=== PATIENT | male | born 1955 | race Caucasian/White ===

== ENCOUNTER 2021-07-07 13:47 | Inpatient (IN) ==
[2021-07-07] MEDS ORDERED: PIPERACILL/TAZOBAC CONSULT ACTIVE PRN (14:06)
[2021-07-07] MEDS ORDERED: PIPERACILLIN/TAZOBACTAM 4.5 GM/120 ML BAG IV ONE (14:06)
[2021-07-07] MEDS ORDERED: SODIUM CHLORIDE 0.9% 500 ML IV ONE (14:09)
[2021-07-07] MEDS ORDERED: SODIUM CHLORIDE 0.9% 1000ML 1,000 ML IV SCH ×2 (14:15→19:25)
--- NOTE | 2021-07-07 14:30 | XRay Report ---
XR chest 1V portable CLINICAL HISTORY: weakness COMPARISON STUDY: No previous studies for comparison. FINDINGS: There is no pneumothorax. Bilateral pleural effusions are noted. Right pleural effusion is moderate to large and the left pleural effusion is likely moderate in size. There are associated biba silar opacities. There is pulmonary vascular congestion with suspected mild pulmonary edema. IMPRESSION: 1. Moderate to large right pleural effusion. Moderate left pleural effusion. Associated bibasilar opa cities which could reflect atelectasis or consolidation. Radiographic follow-up is recommended. 2. Pulmonary vascular congestion with suspected mild pulmonary edema. ACT 112: Negative or not required by law. Electronically signed by: Tye Olivia M.D. 07/07/2021 2:28 PM
[2021-07-07 14:37] LABS: INR 1.9 (0.9-1.1); Prothrombin Time 18.7 Seconds (9.0-12.0)
[2021-07-07 14:44] LABS: Hematocrit (blood only) 37.3 % (42-52); Hemoglobin 12.5 g/dL (14.0-18.0); Mean Corpuscular Hemoglobin 36.5 pg (25-34); Mean Corpuscular Hgb Conc 33.5 g/dL (32-36); Mean Corpuscular Volume 109.1 fL (80-100); Mean Platelet Volume 11.5 fL (7.4-10.4); Platelet Count 84 K/uL (130-400); RDW Coefficient of Variation 18.3 % (11.5-14.5); RDW Standard Deviation 72.4 fL (36.4-46.3); Red Blood Count 3.42 M/uL (4.7-6.1)
[2021-07-07 14:45] LABS: Basophils # (auto) 0.01 K/uL (0-0.2); Basophils % (auto) 0.2 %; Eosinophils # (auto) 0.07 K/uL (0-0.5); Eosinophils % (auto) 1.1 %; Immature Granulocytes # (auto) 0.01 K/uL (0.00-0.02); Immature Granulocytes % (auto) 0.2 %; Lymphocytes % (auto) 14.5 %; Monocytes % (auto) 4.8 %; Neutrophils # (auto) 4.91 K/uL (1.4-6.5); Neutrophils % (auto) 79.2 %; Platelet Estimate Decreased (Normal); Rouleaux 1+; Target Cells 1+
--- NOTE | 2021-07-07 15:37 | CT Scan Report ---
CT OF THE CERVICAL SPINE WITHOUT CONTRAST CLINICAL HISTORY: Trauma COMPARISON STUDY: No previous studies for comparison. TECHNIQUE: Helical axial images of the cervical spine were obtained without IV contrast. Sagittal a nd coronal reconstructions were viewed. Automated exposure control was utilized for the study. A do se lowering technique was utilized adhering to the principles of ALARA. FINDINGS: There is reversal of the normal cervical lordosis. Vertebral body heights are maintained. T here is no acute fracture within the cervical spine. No suspicious osseous lesion is noted. Moderate to severe multilevel disc space narrowing is noted. There is mild multilevel facet arthrosis. There i s no prevertebral edema. Craniocervical junction is intact. Bilateral pleural effusions, right larger than left, are partially imaged on this exam. This study is mildly compromised by motion artifact. IMPRESSION: 1. No acute cervical spine fracture or subluxation. 2. Partially visualized bilateral pleural effusions, right larger than left. ACT 112: Negative or not required by law. Electronically signed by: Tye Olivia M.D. 07/07/2021 3:36 PM
--- NOTE | 2021-07-07 15:37 | CT Scan Report ---
CT SCAN OF THE BRAIN WITHOUT IV CONTRAST CLINICAL HISTORY: Trauma. Headache. COMPARISON STUDY: No priors. TECHNIQUE: Unenhanced axial CT scan of the brain is performed from the vertex to the skull base. A do se lowering technique was utilized adhering to the principles of ALARA. FINDINGS: Brain parenchyma: There are age-related involutional changes noting mild subcortical and periventric ular microangiopathic change. There is no hemorrhage, mass effect, or evidence of acute territorial i schemia by CT criteria. Nelson-white matter differentiation is preserved. No extra-axial fluid collecti on is seen. Ventricles, sulci, cisterns: Prominent secondary to involutional change. Intracranial vasculature: There is atherosclerotic calcification of the cavernous carotid arteries. Calvarium: The skeletal structures are osteopenic. There is no depressed calvarial fracture. Sinuses and mastoids: There is trace mucosal thickening within the left maxillary antrum and the righ t ethmoid sinuses. The remaining visualized paranasal sinuses are clear. The mastoid air cells are we ll pneumatized. Orbits: The bony orbits are grossly intact. There are bilateral ocular lens implants. IMPRESSION: There is no hemorrhage, mass effect, or evidence of acute territorial ischemia by CT melyssa gamino. ACT 112: Negative or not required by law. Electronically signed by: Leonardo Kirkland M.D. 07/07/2021 3:36 PM
--- NOTE | 2021-07-07 16:06 | Ultrasound Report ---
PARACENTESIS UNDER ULTRASOUND GUIDANCE CLINICAL HISTORY: Abdominal ascites. Clinical concern for spontaneous bacterial peritonitis COMPARISON STUDY: No priors. PROCEDURE: The risks, benefits, and alternatives to the procedure were discussed with the patient who voiced understanding. Written informed consent was obtained. Following real-time ultrasound localiza tion of a suitable pocket of fluid in the left lower quadrant, the abdomen was prepped and draped in the usual sterile fashion. The skin and soft tissues were anesthetized with 1% lidocaine. The sheathe d paracentesis needle was inserted and approximately 4 liters of straw-colored ascitic fluid was hitesh curtis by vacuum suction. A sample was sent for laboratory assessment. The procedure was well tolerated and without immediate complication. The patient returned to the emergency department in satisfactory condition. IMPRESSION: Successful ultrasound-guided paracentesis with removal of approximately 4 liters of ascit ic fluid. ACT 112: Negative or not required by law. Electronically signed by: Leonardo Kirkland M.D. 07/07/2021 4:05 PM
[2021-07-07] MEDS ORDERED: SODIUM CHLORIDE 0.9% 1000ML 500 ML IV ONE (16:11)
[2021-07-07] MEDS: ALBUMIN 25% 12.5 GM/50 ML VIAL IV SCH ×8 (16:32→22:53)
[2021-07-07 17:01] LABS: Glucose Peritoneal Fluid 104 mg/dl
[2021-07-07 17:06] LABS: LDH Peritoneal Fluid 34 U/L; Lipase Peritoneal Fluid 19 U/L; Total Protein Peritoneal Fluid 1.5 g/dl
[2021-07-07 17:14] LABS: Appearance Peritoneal Fluid CLEAR; Color Peritoneal Fluid YELLOW; RBC Peritoneal Fluid (A) < 3000 /uL; WBC Peritoneal Fluid (A) 89 /ul (0-300)
[2021-07-07 17:15] LABS: Basophils, Fluid 0 %; Eosinophils, Fluid 0 %; Lymphocytes, Fluid 25 %; Mono,Macrophage,Mesothelial 65 %; Neutrophils, Fluid 10 %
[2021-07-07 17:23] LABS: Alanine Aminotransferase 25 U/L (12-78); Albumin Level 1.8 gm/dl (3.4-5.0); Aspartate Aminotransferase 76 U/L (15-37); BUN Creatinine Ratio 22.6 (10-20); Blood Urea Nitrogen 25 mg/dl (7-18); Calcium 8.6 mg/dl (8.5-10.1); Carbon Dioxide 37 mmol/L (21-32); Chloride 94 mmol/L (98-107); Creatinine Clr Calc Pharmacy 74.8 ml/min; Est GFR (African American) 78.4 ml/min; Est GFR (Non-African American) 67.6 ml/min; Glucose 104 mg/dl (70-99); Magnesium 2.2 mg/dl (1.8-2.4); Potassium 3.2 mmol/L (3.5-5.1); Sodium 136 mmol/L (136-145)
[2021-07-07 17:29] LABS: Albumin Globulin Ratio 0.3 (0.9-2); Alkaline Phosphatase 60 U/L (45-117); Bilirubin,Total 6.3 mg/dl (0.2-1); Globulin 5.3 gm/dl (2.5-4.0); Total Protein 7.1 gm/dl (6.4-8.2); Troponin I < 0.015 ng/ml (0-0.045)
[2021-07-07] MEDS ORDERED: GABAPENTIN 800MG ALCOHOL WITHDRAWAL LOAD PO STA (17:43)
--- NOTE | 2021-07-07 17:51 | History & Physical Report ---
Date of Service July 07, 2021 Assessment & Plan (1) Decompensated liver disease: (2) Abdominal ascites: (3) Hyperbilirubinemia: Plan: This is a 65-year-old male with CHF, hypertension and alcohol abuse who presents with worsening dyspnea over the past week. Denies formal diagnosis of cirrhosis in the past. Noncompliant with medical care, ongoing etoh use Underwent ultrasound-guided paracentesis with removal of approximately 4 liters of ascitic fluid Bilirubin 6, INR 1.9, AST 76, albumin 1.8, ammonia wnl MELD score of 23 Concern for SBP so given empiric Zosyn Peritoneal fluid wbc, protein and LDH all wnl GI consulted, attempted to obtain liver us but patient unable to lay on left side - will attempt again tomorrow Hypotensive in ED 80/40 following paracentesis. 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 Moderate left pleural effusion. Pulmonary vascular congestion with suspected mild pulmonary edema Hold home lasix in setting of hypotension Continue supplemental O2 (6) Bilateral pleural effusion: Plan: CXR with moderate to large right pleural effusion. Moderate left pleural effusion. Pulmonary vascular congestion with suspected mild pulmonary edema Routine pulm consult Continue supplemental O2 (7) Hypertension: Plan: Holding atenolol and carvedilol in setting of hypotension DVT Ppx: SCDs in setting of thrombocytopenia Code status: FULL PCP: Jacquelyn ([place]) Dispo: Admitted to PCU Patient seen in collaboration with Dr. Jaquez. Please see addendum. History of Present Illness Chief Complaint: Dyspnea, generalized weakness Primary Care Provider: Davidson Valladares MD This is a 65-year-old male with CHF, hypertension, and alcohol abuse who presents with worsening dyspnea over the past week. Patient admits that he rarely seeks medical care. Follows infrequently with Dr. Valladares in [place]. Has been feeling generally weak and short of breath over the past week and had a friend checking in on him since he lives alone. Today, patient was too weak to answer the door for his friend who then called EMS to take patient to ER for further evaluation. States he has had distended abdomen for the past 2 weeks. Tried to eat less and reduce alcohol consumption but belly remained distended. Patient with long-term alcohol abuse. Used to drink 10-11 light beers daily but reduced to 8 daily over the past 10 days. Unable to determine time of last drink. Does feel like he is going into withdrawal as he is more agitated and shaky. Known seizures in setting of alcohol withdrawal in the past. Remote tobacco use but quit 20 years ago. No formal cirrhosis diagnosis but states he notes his skin is yellow from time to time. Somewhat compliant taking atenolol, carvedilol and Lasix at home. Has not in the past few days due to feeling more weak. Denies any fever, chills or known sick contacts. No congestion or wheezing. No chest pain or palpitations. No nausea, vomiting or abdominal pain. Urinating without issue. No diarrhea or constipation. Allergies Allergy/AdvReac Type Severity Reaction Status Date / Time No Known Allergies Allergy Verified 07/07/21 14:59 Home Medications Medication Instructions Recorded Confirmed Type atenolol 50 mg tablet 50 mg PO DAILY 07/07/21 07/07/21 History carvedilol 3.125 mg tablet 3.125 mg PO BID 07/07/21 07/07/21 History epinephrine 0.125 mg/actuation 1 puff INHALATION Q4H PRN 07/07/21 07/07/21 History aerosol inhaler (Primatene Mist) furosemide 40 mg tablet (Lasix) 40 mg PO DAILY 07/07/21 07/07/21 History Past Med/Surg History Medical History (Updated 07/07/21 @ 18:02 by Sherice Suárez PA-C) Alcohol abuse CHF (congestive heart failure) Hypertension Surgical History (Updated 07/07/21 @ 17:52 by Sherice Suárez PA-C) No pertinent past surgical history Family History (Updated 07/07/21 @ 17:53 by Sherice Suárez PA-C) Other Heart disease Kidney disease Social History (Updated 07/07/21 @ 17:53 by Sherice Suárez PA-C) Smoking Status: Never smoker Hx Alcohol Use: Yes (states he quit "a week ago" last drink was "last saturday") Alcohol type: beer Hx Substance Use: No Preferred Language: Vietnamese Communication Ability Comment: pt seems confused at times Beliefs That Will Affect Care: None Current Living Situation: Alone Feels Safe at Home: Yes Safety Concerns: Feels Safe At This Time Assistive Devices: Cane and Glasses Review of Systems Review of Systems: At least ten systems reviewed and negative except as noted in the HPI. Physical Exam Physical Exam: General Appearance: vitals as above, appears chronically ill, jaundice, conversational dyspnea Head: normocephalic, atraumatic Eyes: normal inspection, PERRL, conjunctivae normal, anicteric sclerae ENT: external ear and nose normal, oropharynx normal Neck: normal visual inspection, trachea midline, no thyromegaly Respiratory: increased respiratory effort, diminished breath sounds at bases, no wheeze, rales or rhonchi. No accessory muscle use Cardiovascular: regular rate, rhythm, normal peripheral pulses, 1+ BLE edema. Vessels: + JVD Chest: normal inspection of chest Abdomen/GI: normal bowel sounds, distended but soft, nontender, no h epatosplenomegaly Extremities/Musculoskeletal: no cyanosis or clubbing, extremities motor strength 5/5 Neurologic: PERRL, EOMI, accommodation nl, no face palsy, no dysarthria, CN's II-XI intact bilaterally and moves all extremities Psychiatric: A+Ox3, poor insight Skin: no rashes, +jaundice, warm/dry Results & Data Results & Data ([facility]) Vital Signs (Past 12 Hours) Vital Signs Temp Pulse Resp BP Pulse Ox 07/07/21 16:30 67 20 82/43 L 95 07/07/21 16:18 83/54 L 07/07/21 15:11 35.1 C L 07/07/21 15:00 65 20 89/58 L 98 07/07/21 14:33 65 19 94 07/07/21 14:00 69 19 92/70 L 97 07/07/21 13:58 69 20 92/70 L 97 Laboratory Results Short CBC 07/07/21 07/07/21 Range/Units 14:14 16:53 WBC 6.20 (4.8-10.8) K/uL Hgb 12.5 L (14.0-18.0) g/dL Hct 37.3 L (42-52) % Plt Count 84 L (130-400) K/uL Total Bilirubin 6.3 H (0.2-1) mg/dl BMP 07/07/21 16:53 Sodium 136 Potassium 3.2 L Chloride 94 L Carbon Dioxide 37 H BUN 25 H Creatinine 1.12 Glucose 104 H Calcium 8.6 Cardiac Enzymes 07/07/21 Range/Units 16:53 Troponin I < 0.015 (0-0.045) ng/ml Liver Function 07/07/21 Range/Units 16:53 Total Bilirubin 6.3 H (0.2-1) mg/dl AST 76 H (15-37) U/L ALT 25 (12-78) U/L Alkaline Phosphatase 60 (45-117) U/L Albumin 1.8 L (3.4-5.0) gm/dl Diagnostic Findings Cervical Spine CT 07/07/21 14:00 CT OF THE CERVICAL SPINE WITHOUT CONTRAST CLINICAL HISTORY: Trauma COMPARISON STUDY: No previous studies for comparison. TECHNIQUE: Helical axial images of the cervical spine were obtained without IV contrast. Sagittal and coronal reconstructions were viewed. Automated exposure control was utilized for the study. A dose lowering technique was utilized adhering to the principles of ALARA. FINDINGS: There is reversal of the normal cervical lordosis. Vertebral body heights are maintained. There is no acute fracture within the cervical spine. No suspicious osseous lesion is noted. Moderate to severe multilevel disc space narrowing is noted. There is mild multilevel facet arthrosis. There is no prevertebral edema. Craniocervical junction is intact. Bilateral pleural effusions, right larger than left, are partially imaged on this exam. This study is mildly compromised by motion artifact. IMPRESSION: 1. No acute cervical spine fracture or subluxation. 2. Partially visualized bilateral pleural effusions, right larger than left. ACT 112: Negative or not required by law. Electronically signed by: Tye Olivia M.D. 07/07/2021 3:[address] 07/07/21 14:00 CT SCAN OF THE BRAIN WITHOUT IV CONTRAST CLINICAL HISTORY: Trauma. Headache. COMPARISON STUDY: No priors. TECHNIQUE: Unenhanced axial CT scan of the brain is performed from the vertex to the skull base. A dose lowering technique was utilized adhering to the principles of ALARA. FINDINGS: Brain parenchyma: There are age-related involutional changes noting mild subcortical and periventricular microangiopathic change. There is no hemorrhage, mass effect, or evidence of acute territorial ischemia by CT criteria. Nelson- white matter differentiation is preserved. No extra-axial fluid collection is seen. Ventricles, sulci, cisterns: Prominent secondary to involutional change. Intracranial vasculature: There is atherosclerotic calcification of the cavernous carotid arteries. Calvarium: The skeletal structures are osteopenic. There is no depressed calvarial fracture. Sinuses and mastoids: There is trace mucosal thickening within the left maxillary antrum and the right ethmoid sinuses. The remaining visualized paranasal sinuses are clear. The mastoid air cells are well pneumatized. Orbits: The bony orbits are grossly intact. There are bilateral ocular lens implants. IMPRESSION: There is no hemorrhage, mass effect, or evidence of acute territorial ischemia by CT criteria. ACT 112: Negative or not required by law. Electronically signed by: Leonardo Kirkland M.D. 07/07/2021 3:36 PM Paracentesis Ultrasound 07/07/21 14:00 PARACENTESIS UNDER ULTRASOUND GUIDANCE CLINICAL HISTORY: Abdominal ascites. Clinical concern for spontaneous bacterial peritonitis COMPARISON STUDY: No priors. PROCEDURE: The risks, benefits, and alternatives to the procedure were discussed with the patient who voiced understanding. Written informed consent was obtained. Following real-time ultrasound localization of a suitable pocket of fluid in the left lower quadrant, the abdomen was prepped and draped in the usual sterile fashion. The skin and soft tissues were anesthetized with 1% lidocaine. The sheathed paracentesis needle was inserted and approximately 4 liters of straw-colored ascitic fluid was removed by vacuum suction. A sample was sent for laboratory assessment. The procedure was well tolerated and without immediate complication. The patient returned to the emergency department in satisfactory condition. IMPRESSION: Successful ultrasound-guided paracentesis with removal of approximat monae 4 liters of ascitic fluid. ACT 112: Negative or not required by law. Electronically signed by: Leonardo Kirkland M.D. 07/07/2021 4:05 PM Chest X-Ray 07/07/21 14:03 XR chest 1V portable CLINICAL HISTORY: weakness COMPARISON STUDY: No previous studies for comparison. FINDINGS: There is no pneumothorax. Bilateral pleural effusions are noted. Right pleural effusion is moderate to large and the left pleural effusion is likely moderate in size. There are associated bibasilar opacities. There is pulmonary vascular congestion with suspected mild pulmonary edema. IMPRESSION: 1. Moderate to large right pleural effusion. Moderate left pleural effusion. Associated bibasilar opacities which could reflect atelectasis or consolidation. Radiographic follow-up is recommended. 2. Pulmonary vascular congestion with suspected mild pulmonary edema. ACT 112: Negative or not required by law. Electronically signed by: Tye Olivia M.D. 07/07/2021 2:28 PM Code Status & VTE Plan VTE Prophylaxis Plan VTE Prophylaxis will be ordered: Yes Supervising Physician Co-Signing Physician Notes Attending addendum: The patient was seen and examined in emergency room 65-year-old with alcoholism came in with increasing weakness and shortness of breath for the last few days Denies any fever and chills, no chest pain or palpitation, has abdominal pain with distention Has had paracentesis of 4 L of fluid and has been feeling a little bit better in the emergency room On examination Moderate distress at rest with shortness of breath Blood pressure remains low at systolic 80s Chest decreased breath sounds both sides Heart S1-S2 regular Abdomendistended, soft, tender to palpation and moderate amount of ascites fluid Extremities 2+ edema bilaterally and chronic in nature CNSalert, oriented. General very weak lethargy His admission labs, imaging studies and EKG reviewed Has low platelet with high anti-INR and electrode imbalance with bilateral pleural effusion and ascites Noted to have low blood pressure Has decompensated cirrhosis with ascites, pleural effusion: And low blood pressure May need pressor support down the line Reviewed assessment and plan as outlined above by OLMAN Henry Dr
[2021-07-07] MEDS ORDERED: GABAPENTIN 800 MG TAB PO ONE (18:00)
--- NOTE | 2021-07-07 18:00 | Emergency Department Note ---
History of Present Illness General Chief complaint: GI Assessment Stated complaint: Hypoxia Weakness Time Seen by Provider: 07/07/21 13:58 Source: patient and RN notes reviewed Mode of arrival: ambulatory Limitations: no limitations History of Present Illness Provider complaint: Hypoxia, weakness, fall This patient is a 65-year-old male who presents to the emergency department with complaints of weakness and recent fall. Patient states he drinks alcohol regularly Home Medications Medication Instructions Recorded Confirmed Type atenolol 50 mg tablet 50 mg PO DAILY 07/07/21 07/07/21 History carvedilol 3.125 mg tablet 3.125 mg PO BID 07/07/21 07/07/21 History epinephrine 0.125 mg/actuation 1 puff INHALATION Q4H PRN 07/07/21 07/07/21 History aerosol inhaler (Primatene Mist) furosemide 40 mg tablet (Lasix) 40 mg PO DAILY 07/07/21 07/07/21 History Allergies Allergy/AdvReac Type Severity Reaction Status Date / Time No Known Allergies Allergy Verified 07/07/21 14:59 Past Med/Surg History Medical History (Updated 07/07/21 @ 18:00 by Paris Gutierrez MD) Alcohol abuse CHF (congestive heart failure) Hypertension Surgical History (Updated 07/07/21 @ 17:52 by Sherice Suárez PA-C) No pertinent past surgical history Family History (Updated 07/07/21 @ 17:53 by Sherice Suárez PA-C) Other Heart disease Kidney disease Social History (Updated 07/07/21 @ 17:45 by Paris Gutierrez MD) Smoking Status: Former smoker Hx Alcohol Use: Yes ([employer] 8-10 cans/day x 6-7 years (he says "maybe")) Alcohol type: beer Hx Substance Use: No Current Living Situation: Alone Feels Safe at Home: Yes Physical Exam Vital Signs Vital Signs - 24 hr 07/07/21 13:58 07/07/21 14:00 07/07/21 14:03 Temperature Temperature Source Pulse Rate 69 69 Pulse Rate from SpO2 Sensor 66 Respiratory Rate 20 19 Respiratory Effort / Characteristics Non-Labored Respiratory Depth Normal Respiratory Pattern Regular Blood Pressure 92/70 L 92/70 L Blood Pressure Mean 77 77 Pulse Oximetry 97 97 Oxygen Delivery Method Non-rebreather Nasal Cannula Oxygen Flow Rate 15 3 Sepsis Recent Fever Within 48 Hours Yes Sepsis New/Unexplained Change in Mental Status No Sepsis Action Taken by Nursing No Action Required 07/07/21 14:33 07/07/21 15:00 07/07/21 15:11 Temperature 35.1 C L Temperature Source Rectal Pulse Rate 65 65 Pulse Rate from SpO2 Sensor 66 64 Respiratory Rate 19 20 Respiratory Effort / Characteristics Respiratory Depth Respiratory Pattern Blood Pressure 89/58 L Blood Pressure Mean 68 Pulse Oximetry 94 98 Oxygen Delivery Method Oxygen Flow Rate Sepsis Recent Fever Within 48 Hours Sepsis New/Unexplained Change in Mental Status Sepsis Action Taken by Nursing 07/07/21 16:18 07/07/21 16:30 Temperature Temperature Source Pulse Rate 67 Pulse Rate from SpO2 Sensor 67 Respiratory Rate 20 Respiratory Effort / Characteristics Respiratory Depth Respiratory Pattern Blood Pressure 83/54 L 82/43 L Blood Pressure Mean 63 56 Pulse Oximetry 95 Oxygen Delivery Method Oxygen Flow Rate Sepsis Recent Fever Within 48 Hours Sepsis New/Unexplained Change in Mental Status Sepsis Action Taken by Nursing Vital signs reviewed. Noted to be hypotensive, hypothermic General: Chronically ill-appearing 65-year-old male, in no significant distress HEENT: Positive scleral icterus, PERRLA, neck supple. Ecchymosis noted to the anterior neck that appears to be healing. Cardiovascular: Regular rate and rhythm, no extra sounds. Pulmonary: Clear to auscultation bilaterally, normal work of breathing. Abdomen: Soft, distended with positive fluid wave. Warm to touch with erythema noted to the distal half of the abdominal wall. Mildly tender to palpation diffusely. Musculoskeletal: Atraumatic, no peripheral edema. Cachectic. Bilateral lower extremity edema 2+. Neurologic: Patient awake alert and oriented x 3. Skin: Warm, dry, no rash Course Administered Medications Sodium Chloride (Nss 1000ml) 1,000 mls @ 150 mls/hr IV .Q6H40M PENDING SALE TO [facility] Stop: 08/06/21 14:14 Last Admin: 07/07/21 15:10 Dose: 150 mls/hr Documented by: [id number] Albumin Human (Albumin 25%) 12.5 gm in 50 mls @ 50 mls/hr IV Q1H PENDING SALE TO [facility] Stop: 07/07/21 18:14 Last Admin: 07/07/21 16:42 Dose: 50 mls/hr Documented by: [id number] Infusion: 07/07/21 16:42 Dose: 50 mls/hr Documented by: [id number] Admin: 07/07/21 16:32 Dose: 50 mls/hr Documented by: [id number] Albumin Human (Albumin 25%) 12.5 gm in 50 mls @ 50 mls/hr IV Q1H [facility] Stop: 07/07/21 19:14 Last Admin: 07/07/21 17:23 Dose: 50 mls/hr Documented by: [id number] Infusion: 07/07/21 17:23 Dose: 50 mls/hr Documented by: [id number] Admin: 07/07/21 17:12 Dose: 50 mls/hr Documented by: [id number] Discontinued Medications Piperacillin Sod/Tazobactam Sod (Zosyn) 4.5 gm in 120 mls @ 240 mls/hr IV NOW ONE Stop: 07/07/21 14:35 Last Infusion: 07/07/21 16:40 Dose: 0 mls/hr Documented by: [id number] Admin: 07/07/21 14:57 Dose: 240 mls/hr Documented by: [id number] Sodium Chloride (Nss) 500 mls @ 999 mls/hr IV .Q31M ONE Stop: 07/07/21 14:39 Last Infusion: 07/07/21 16:44 Dose: 0 mls/hr Documented by: [id number] Admin: 07/07/21 14:46 Dose: 999 mls/hr Documented by: [id number] Sodium Chloride (Nss 1000ml) 500 mls @ 999 mls/hr IV .Q31M ONE Stop: 07/07/21 16:41 Last Admin: 07/07/21 16:40 Dose: 999 mls/hr Documented by: [id number] Critical Care Time Critical Care Time: Yes Total Critical Care Time: 50 I have personally spent greater than 50 minutes of critical care time in the direct management of this patient. This includes bedside care, interpretation of diagnostic studies, and testing, discussion with consultants, patient, and family members, and other required patient management activities. This 50 minutes is in excess of all separately billable procedures. Medical Decision Making Differential Diagnosis Sepsis, alcohol intoxication, liver failure, renal failure, malignancy, dehydration, metabolic abnormality, hypo/hyperglycemia, electrolyte disturbance, anemia, hypoxia, cardiac sources, intracerebral event, toxicologic, neurologic, as well as other pathologies. Medical Records Attestation: I reviewed the patient's medical records. Home Medications Current Medication List: was personally reviewed by me Laboratory Data Attestation: I reviewed the patient's lab results. Result diagrams: 07/07/21 14:14 07/07/21 16:53 Lab Results 07/07/21 07/07/21 07/07/21 Range/Units 14:10 14:10 14:14 WBC (4.8-10.8) K/uL RBC (4.7-6.1) M/uL Hgb (14.0-18.0) g/dL Hct (42-52) % MCV (80-100) fL MCH (25-34) pg MCHC (32-36) g/dL RDW Std Deviation (36.4-46.3) fL RDW Coeff of Anjana (11.5-14.5) % Plt Count (130-400) K/uL MPV (7.4-10.4) fL Immature Gran % (Auto) % Neut % (Auto) % Lymph % (Auto) % [place] % (Auto) % Eos % (Auto) % Baso % (Auto) % Neut # (Auto) (1.4-6.5) K/uL Lymph # (Auto) (1.2-3.4) K/uL [place] # (Auto) (0.11-0.59) K/uL Eos # (Auto) (0-0.5) K/uL Baso # (Auto) (0-0.2) K/uL Immature Gran # (Auto) (0.00-0.02) K/uL Platelet Estimate (Normal) Target Cells Rouleaux PT 18.7 H (9.0-12.0) Seconds INR 1.9 H (0.9-1.1) Sodium (136-145) mmol/L Potassium (3.5-5.1) mmol/L Chloride (98-107) mmol/L Carbon Dioxide (21-32) mmol/L Anion Gap (3-11) BUN (7-18) mg/dl Creatinine (0.6-1.4) mg/dl Est Cr Clr Drug Dosing ml/min Est GFR ( Amer) ml/min Est GFR (Non-Af Amer) ml/min BUN/Creatinine Ratio (10-20) Glucose (70-99) mg/dl Lactate (0.4-2.0) mmol/L Calcium (8.5-10.1) mg/dl Magnesium (1.8-2.4) mg/dl Total Bilirubin (0.2-1) mg/dl AST (15-37) U/L ALT (12-78) U/L Alkaline Phosphatase (45-117) U/L Ammonia (11-32) umol/L Troponin I (0-0.045) ng/ml Total Protein (6.4-8.2) gm/dl Albumin (3.4-5.0) gm/dl Globulin (2.5-4.0) gm/dl Albumin/Globulin Ratio (0.9-2) TSH (0.300-4.500) uIu/ml Fluid Neutrophils % % Fluid Lymphocytes % % Fluid Eosinophils % % Fluid Basophils % % Fluid Meso/Macro/[place] % % Fluid Comment Peritoneal Color Peritoneal Appearance Peritoneal WBC (0-300) /ul Peritoneal RBC /uL Peritoneal Tot Protein g/dl Peritoneal LDH U/L Peritoneal Glucose mg/dl Peritoneal Lipase U/L Ethyl Alcohol mg/dL COVID-19 Eval Order Covid19 at [facility] SARS-CoV-2 (PCR) NEGATIVE (Negative) Blood Type Antibody Screen 07/07/21 07/07/21 07/07/21 Range/Units 14:14 14:14 14:14 WBC 6.20 (4.8-10.8) K/uL RBC 3.42 L (4.7-6.1) M/uL Hgb 12.5 L (14.0-18.0) g/dL Hct 37.3 L (42-52) % MCV 109.1 H (80-100) fL MCH 36.5 H (25-34) pg MCHC 33.5 (32-36) g/dL RDW Std Deviation 72.4 H (36.4-46.3) fL RDW Coeff of Anjana 18.3 H (11.5-14.5) % Plt Count 84 L (130-400) K/uL MPV 11.5 H (7.4-10.4) fL Immature Gran % (Auto) 0.2 % Neut % (Auto) 79.2 % Lymph % (Auto) 14.5 % [place] % (Auto) 4.8 % Eos % (Auto) 1.1 % Baso % (Auto) 0.2 % Neut # (Auto) 4.91 (1.4-6.5) K/uL Lymph # (Auto) 0.90 L (1.2-3.4) K/uL [place] # (Auto) 0.30 (0.11-0.59) K/uL Eos # (Auto) 0.07 (0-0.5) K/uL Baso # (Auto) 0.01 (0-0.2) K/uL Immature Gran # (Auto) 0.01 (0.00-0.02) K/uL Platelet Estimate Decreased L (Normal) Target Cells 1+ Rouleaux 1+ PT (9.0-12.0) Seconds INR (0.9-1.1) Sodium (136-145) mmol/L Potassium (3.5-5.1) mmol/L Chloride (98-107) mmol/L Carbon Dioxide (21-32) mmol/L Anion Gap (3-11) BUN (7-18) mg/dl Creatinine (0.6-1.4) mg/dl Est Cr Clr Drug Dosing ml/min Est GFR ( Amer) ml/min Est GFR (Non-Af Amer) ml/min BUN/Creatinine Ratio (10-20) Glucose (70-99) mg/dl Lactate 2.1 H* (0.4-2.0) mmol/L Calcium (8.5-10.1) mg/dl Magnesium (1.8-2.4) mg/dl Total Bilirubin (0.2-1) mg/dl AST (15-37) U/L ALT (12-78) U/L Alkaline Phosphatase (45-117) U/L Ammonia (11-32) umol/L Troponin I (0-0.045) ng/ml Total Protein (6.4-8.2) gm/dl Albumin (3.4-5.0) gm/dl Globulin (2.5-4.0) gm/dl Albumin/Globulin Ratio (0.9-2) TSH (0.300-4.500) uIu/ml Fluid Neutrophils % % Fluid Lymphocytes % % Fluid Eosinophils % % Fluid Basophils % % Fluid Meso/Macro/[place] % % Fluid Comment Peritoneal Color Peritoneal Appearance Peritoneal WBC (0-300) /ul Peritoneal RBC /uL Peritoneal Tot Protein g/dl Peritoneal LDH U/L Peritoneal Glucose mg/dl Peritoneal Lipase U/L Ethyl Alcohol mg/dL COVID-19 Eval Order SARS-CoV-2 (PCR) (Negative) Blood Type Antibody Screen 07/07/21 07/07/21 07/07/21 Range/Units 14:14 14:52 14:52 WBC (4.8-10.8) K/uL RBC (4.7-6.1) M/uL Hgb (14.0-18.0) g/dL Hct (42-52) % MCV (80-100) fL MCH (25-34) pg MCHC (32-36) g/dL RDW Std Deviation (36.4-46.3) fL RDW Coeff of Anjana (11.5-14.5) % Plt Count (130-400) K/uL MPV (7.4-10.4) fL Immature Gran % (Auto) % Neut % (Auto) % Lymph % (Auto) % [place] % (Auto) % Eos % (Auto) % Baso % (Auto) % Neut # (Auto) (1.4-6.5) K/uL Lymph # (Auto) (1.2-3.4) K/uL [place] # (Auto) (0.11-0.59) K/uL Eos # (Auto) (0-0.5) K/uL Baso # (Auto) (0-0.2) K/uL Immature Gran # (Auto) (0.00-0.02) K/uL Platelet Estimate (Normal) Target Cells Rouleaux PT (9.0-12.0) Seconds INR (0.9-1.1) Sodium (136-145) mmol/L Potassium (3.5-5.1) mmol/L Chloride (98-107) mmol/L Carbon Dioxide (21-32) mmol/L Anion Gap (3-11) BUN (7-18) mg/dl Creatinine (0.6-1.4) mg/dl Est Cr Clr Drug Dosing ml/min Est GFR ( Amer) ml/min Est GFR (Non-Af Amer) ml/min BUN/Creatinine Ratio (10-20) Glucose (70-99) mg/dl Lactate 2.2 H* (0.4-2.0) mmol/L Calcium (8.5-10.1) mg/dl Magnesium (1.8-2.4) mg/dl Total Bilirubin (0.2-1) mg/dl AST (15-37) U/L ALT (12-78) U/L Alkaline Phosphatase (45-117) U/L Ammonia (11-32) umol/L Troponin I (0-0.045) ng/ml Total Protein (6.4-8.2) gm/dl Albumin (3.4-5.0) gm/dl Globulin (2.5-4.0) gm/dl Albumin/Globulin Ratio (0.9-2) TSH (0.300-4.500) uIu/ml Fluid Neutrophils % % Fluid Lymphocytes % % Fluid Eosinophils % % Fluid Basophils % % Fluid Meso/Macro/[place] % % Fluid Comment Peritoneal Color Peritoneal Appearance Peritoneal WBC (0-300) /ul Peritoneal RBC /uL Peritoneal Tot Protein g/dl Peritoneal LDH U/L Peritoneal Glucose mg/dl Peritoneal Lipase U/L Ethyl Alcohol mg/dL Cancelled COVID-19 Eval Order SARS-CoV-2 (PCR) (Negative) Blood Type O Positive Antibody Screen NEGATIVE 07/07/21 07/07/21 07/07/21 Range/Units 14:52 14:53 16:37 WBC (4.8-10.8) K/uL RBC (4.7-6.1) M/uL Hgb (14.0-18.0) g/dL Hct (42-52) % MCV (80-100) fL MCH (25-34) pg MCHC (32-36) g/dL RDW Std Deviation (36.4-46.3) fL RDW Coeff of Anjana (11.5-14.5) % Plt Count (130-400) K/uL MPV (7.4-10.4) fL Immature Gran % (Auto) % Neut % (Auto) % Lymph % (Auto) % [place] % (Auto) % Eos % (Auto) % Baso % (Auto) % Neut # (Auto) (1.4-6.5) K/uL Lymph # (Auto) (1.2-3.4) K/uL [place] # (Auto) (0.11-0.59) K/uL Eos # (Auto) (0-0.5) K/uL Baso # (Auto) (0-0.2) K/uL Immature Gran # (Auto) (0.00-0.02) K/uL Platelet Estimate (Normal) Target Cells Rouleaux PT (9.0-12.0) Seconds INR (0.9-1.1) Sodium (136-145) mmol/L Potassium (3.5-5.1) mmol/L Chloride (98-107) mmol/L Carbon Dioxide (21-32) mmol/L Anion Gap (3-11) BUN (7-18) mg/dl Creatinine (0.6-1.4) mg/dl Est Cr Clr Drug Dosing ml/min Est GFR ( Amer) ml/min Est GFR (Non-Af Amer) ml/min BUN/Creatinine Ratio (10-20) Glucose (70-99) mg/dl Lactate (0.4-2.0) mmol/L Calcium (8.5-10.1) mg/dl Magnesium (1.8-2.4) mg/dl Total Bilirubin (0.2-1) mg/dl AST (15-37) U/L ALT (12-78) U/L Alkaline Phosphatase (45-117) U/L Ammonia 16.2 (11-32) umol/L Troponin I (0-0.045) ng/ml Total Protein (6.4-8.2) gm/dl Albumin (3.4-5.0) gm/dl Globulin (2.5-4.0) gm/dl Albumin/Globulin Ratio (0.9-2) TSH (0.300-4.500) uIu/ml Fluid Neutrophils % 10 % Fluid Lymphocytes % 25 % Fluid Eosinophils % 0 % Fluid Basophils % 0 % Fluid Meso/Macro/[place] % 65 % Fluid Comment Peritoneal Color YELLOW Peritoneal Appearance CLEAR Peritoneal WBC 89 (0-300) /ul Peritoneal RBC < 3000 /uL Peritoneal Tot Protein 1.5 g/dl Peritoneal LDH 34 U/L Peritoneal Glucose 104 mg/dl Peritoneal Lipase 19 U/L Ethyl Alcohol mg/dL < 3.0 COVID-19 Eval Order SARS-CoV-2 (PCR) (Negative) Blood Type Antibody Screen 07/07/21 07/07/21 Range/Units 16:53 16:53 WBC (4.8-10.8) K/uL RBC (4.7-6.1) M/uL Hgb (14.0-18.0) g/dL Hct (42-52) % MCV (80-100) fL MCH (25-34) pg MCHC (32-36) g/dL RDW Std Deviation (36.4-46.3) fL RDW Coeff of Anjana (11.5-14.5) % Plt Count (130-400) K/uL MPV (7.4-10.4) fL Immature Gran % (Auto) % Neut % (Auto) % Lymph % (Auto) % [place] % (Auto) % Eos % (Auto) % Baso % (Auto) % Neut # (Auto) (1.4-6.5) K/uL Lymph # (Auto) (1.2-3.4) K/uL [place] # (Auto) (0.11-0.59) K/uL Eos # (Auto) (0-0.5) K/uL Baso # (Auto) (0-0.2) K/uL Immature Gran # (Auto) (0.00-0.02) K/uL Platelet Estimate (Normal) Target Cells Rouleaux PT (9.0-12.0) Seconds INR (0.9-1.1) Sodium 136 (136-145) mmol/L Potassium 3.2 L (3.5-5.1) mmol/L Chloride 94 L (98-107) mmol/L Carbon Dioxide 37 H (21-32) mmol/L Anion Gap 5.0 (3-11) BUN 25 H (7-18) mg/dl Creatinine 1.12 (0.6-1.4) mg/dl Est Cr Clr Drug Dosing 74.8 ml/min Est GFR ( Amer) 78.4 ml/min Est GFR (Non-Af Amer) 67.6 ml/min BUN/Creatinine Ratio 22.6 H (10-20) Glucose 104 H (70-99) mg/dl Lactate 2.2 H* (0.4-2.0) mmol/L Calcium 8.6 (8.5-10.1) mg/dl Magnesium 2.2 (1.8-2.4) mg/dl Total Bilirubin 6.3 H (0.2-1) mg/dl AST 76 H (15-37) U/L ALT 25 (12-78) U/L Alkaline Phosphatase 60 (45-117) U/L Ammonia (11-32) umol/L Troponin I < 0.015 (0-0.045) ng/ml Total Protein 7.1 (6.4-8.2) gm/dl Albumin 1.8 L (3.4-5.0) gm/dl Globulin 5.3 H (2.5-4.0) gm/dl Albumin/Globulin Ratio 0.3 L (0.9-2) TSH 3.240 (0.300-4.500) uIu/ml Fluid Neutrophils % % Fluid Lymphocytes % % Fluid Eosinophils % % Fluid Basophils % % Fluid Meso/Macro/[place] % % Fluid Comment Peritoneal Color Peritoneal Appearance Peritoneal WBC (0-300) /ul Peritoneal RBC /uL Peritoneal Tot Protein g/dl Peritoneal LDH U/L Peritoneal Glucose mg/dl Peritoneal Lipase U/L Ethyl Alcohol mg/dL COVID-19 Eval Order SARS-CoV-2 (PCR) (Negative) Blood Type Antibody Screen Imaging Data Radiologist's Impression: Cervical Spine CT 07/07/21 14:00 CT OF THE CERVICAL SPINE WITHOUT CONTRAST CLINICAL HISTORY: Trauma COMPARISON STUDY: No previous studies for comparison. TECHNIQUE: Helical axial images of the cervical spine were obtained without IV contrast. Sagittal and coronal reconstructions were viewed. Automated exposure control was utilized for the study. A dose lowering technique was utilized adhering to the principles of ALARA. FINDINGS: There is reversal of the normal cervical lordosis. Vertebral body heights are maintained. There is no acute fracture within the cervical spine. No suspicious osseous lesion is noted. Moderate to severe multilevel disc space narrowing is noted. There is mild multilevel facet arthrosis. There is no prevertebral edema. Craniocervical junction is intact. Bilateral pleural effusions, right larger than left, are partially imaged on this exam. This study is mildly compromised by motion artifact. IMPRESSION: 1. No acute cervical spine fracture or subluxation. 2. Partially visualized bilateral pleural effusions, right larger than left. ACT 112: Negative or not required by law. Electronically signed by: Tye Olivia M.D. 07/07/2021 3:[address] 07/07/21 14:00 CT SCAN OF THE BRAIN WITHOUT IV CONTRAST CLINICAL HISTORY: Trauma. Headache. COMPARISON STUDY: No priors. TECHNIQUE: Unenhanced axial CT scan of the brain is performed from the vertex to the skull base. A dose lowering technique was utilized adhering to the principles of ALARA. FINDINGS: Brain parenchyma: There are age-related involutional changes noting mild subcortical and periventricular microangiopathic change. There is no hemorrhage, mass effect, or evidence of acute territorial ischemia by CT criteria. Nelson- white matter differentiation is preserved. No extra-axial fluid collection is seen. Ventricles, sulci, cisterns: Prominent secondary to involutional change. Intracranial vasculature: There is atherosclerotic calcification of the cavernous carotid arteries. Calvarium: The skeletal structures are osteopenic. There is no depressed calvarial fracture. Sinuses and mastoids: There is trace mucosal thickening within the left maxillary antrum and the right ethmoid sinuses. The remaining visualized paranasal sinuses are clear. The mastoid air cells are well pneumatized. Orbits: The bony orbits are grossly intact. There are bilateral ocular lens implants. IMPRESSION: There is no hemorrhage, mass effect, or evidence of acute territorial ischemia by CT criteria. ACT 112: Negative or not required by law. Electronically signed by: Leonardo Kirkland M.D. 07/07/2021 3:36 PM Paracentesis Ultrasound 07/07/21 14:00 PARACENTESIS UNDER ULTRASOUND GUIDANCE CLINICAL HISTORY: Abdominal ascites. Clinical concern for spontaneous bacterial peritonitis COMPARISON STUDY: No priors. PROCEDURE: The risks, benefits, and alternatives to the procedure were discussed with the patient who voiced understanding. Written informed consent was obtained. Following real-time ultrasound localization of a suitable pocket of fluid in the left lower quadrant, the abdomen was prepped and draped in the usual sterile fashion. The skin and soft tissues were anesthetized with 1% lidocaine. The sheathed paracentesis needle was inserted and approximately 4 liters of straw-colored ascitic fluid was removed by vacuum suction. A sample was sent for laboratory assessment. The procedure was well tolerated and without immediate complication. The patient returned to the emergency department in satisfactory condition. IMPRESSION: Successful ultrasound-guided paracentesis with removal of approximately 4 liters of ascitic fluid. ACT 112: Negative or not required by law. Electronically signed by: Leonardo Kirkland M.D. 07/07/2021 4:05 PM Chest X-Ray 07/07/21 14:03 XR chest 1V portable CLINICAL HISTORY: weakness COMPARISON STUDY: No previous studies for comparison. FINDINGS: There is no pneumothorax. Bilateral pleural effusions are noted. Right pleural effusion is moderate to large and the left pleural effusion is likely moderate in size. There are associated bibasilar opacities. There is pulmonary vascular congestion with suspected mild pulmonary edema. IMPRESSION: 1. Moderate to large right pleural effusion. Moderate left pleural effusion. Associated bibasilar opacities which could reflect atelectasis or consolidation. Radiographic follow-up is recommended. 2. Pulmonary vascular congestion with suspected mild pulmonary edema. ACT 112: Negative or not required by law. Electronically signed by: Tye Olivia M.D. 07/07/2021 2:28 PM PARACENTESIS UNDER ULTRASOUND GUIDANCE CLINICAL HISTORY: Abdominal ascites. Clinical concern for spontaneous bacterial peritonitis COMPARISON STUDY: No priors. PROCEDURE: The risks, benefits, and alternatives to the procedure were discussed with the patient who voiced understanding. Written informed consent was obtained. Following real-time ultrasound localization of a suitable pocket of fl uid in the left lower quadrant, the abdomen was prepped and draped in the usual sterile fashion. The skin and soft tissues were anesthetized with 1% lidocaine. The sheathed paracentesis needle was inserted and approximately 4 liters of straw-colored ascitic fluid was removed by vacuum suction. A sample was sent for laboratory assessment. The procedure was well tolerated and without immediate complication. The patient returned to the emergency department in satisfactory condition. IMPRESSION: Successful ultrasound-guided paracentesis with removal of approximately 4 liters of ascitic fluid. ACT 112: Negative or not required by law. Electronically signed by: Leonardo Kirkland M.D. 07/07/2021 4:05 PM Dictated: 07/07/21 1604Transcribed: 07/07/21 160 ECG Data Attestation: I personally reviewed and interpreted this ECG as follows: Indication: + weakness Rate (beats per minute): 68 Rhythm: + normal sinus ECG Intervals/blocks: + Prolonged QT (525); no Normal QRS (low voltage) ECG [place]: + Normal ECG ST segments: + Normal ST segments and + repolarization abnormalities (T wave abnormality in the lateral leads) ECG Findings: + PVCs Blood Pressure Blood Pressure Findings: Low blood pressure Blood Pressure Disposition: further management by hospitalist HERMANN Olmos This patient was evaluated and appeared to be in no significant distress. An order for cardiac monitoring was placed and the patient is noted to be in a sinus rhythm at 69 bpm. Patient's blood pressure is noted to be low in the 80s and 90s systolic. Patient was hydrated with normal saline solution. He was noted to be hypothermic on a rectal temperature at 35 1. He was placed on a bear hugger and blood cultures were obtained. Patient was given IV Zosyn for presumed SBP. He was sent for diagnostic paracentesis however radiology stated they would be able to take off more for patient comfort as there is a large volume ascites on imaging. 4 L were taken off only due to the patient's blood pressure. He was then given IV albumin 25 g x 2. Additional IV boluses were ne cessary for the patient's blood pressure. Chest x-ray reveals bilateral pleural effusions. This is likely secondary to liver failure. Patient states he has not had anything to drink in well over a week but his alcohol of choice is [place] light beer. He is unable to tell me how long he has been drinking but states it is on average 8-9 beers a day.Ultrasound imaging of the portal vein was ordered however the patient was unable to tolerate positioning necessary. Patient's creatinine is normal. Lactate is elevated at 2.2 with an INR of 1.9. Patient's case was discussed with the hospitalist who will evaluate the patient for admission and further management. Impression & Plan Acute hypotension, Alcohol abuse, CHF (congestive heart failure), End stage liver disease, Elevated lactic acid level Discharge Plan Visit Data Chief Complaint: GI Assessment Stated Complaint: Hypoxia Weakness ED Provider: Paris Gutierrez Discharge Problem: Acute hypotension, Alcohol abuse, CHF (congestive heart failure), End stage liver disease, Elevated lactic acid level Forms Stand Alone Forms: My [facility] [employer] Prescriptions Prescriptions: No Action furosemide [Lasix] 40 mg Tablet 40 mg PO DAILY RF: 0 carvedilol 3.125 mg Tablet 3.125 mg PO BID RF: 0 atenolol 50 mg Tablet 50 mg PO DAILY RF: 0 Primatene Mist 0.125 mg/actuation Hfa Aerosol Inhaler 1 puff INHALATION Q4H PRN (Reason: Shortness Of Breath) RF: 0 Referrals Referrals: Davidson Valladares MD [Primary Care Provider] - Discharge Problem: CHF (congestive heart failure) Qualifiers: Heart failure type: unspecified Heart failure chronicity: chronic Qualified Code(s): I50.9 - Heart failure, unspecified
[2021-07-07 18:19] LABS: C Reactive Protein 2.16 mg/dl (0-0.29); Phosphorus 3.9 mg/dl (2.5-4.9)
[2021-07-07] MEDS ORDERED: LORazepam 1 MG/2 ML VIAL IV PRN (19:25)
[2021-07-07] MEDS ORDERED: ACETAMINOPHEN 325 MG TAB PO PRN (19:25)
[2021-07-07] MEDS ORDERED: ONDANSETRON INJ 2 MG/ML 2 ML VIAL IV PRN (19:25)
[2021-07-07] MEDS ORDERED: GABAPENTIN 400 MG CAP PO ONE (19:25)
[2021-07-07] MEDS ORDERED: LORazepam 3 MG/6 ML VIAL IV PRN (19:25)
[2021-07-07] MEDS ORDERED: LORazepam 2 MG/4 ML VIAL IV PRN (19:25)
[2021-07-07] MEDS ORDERED: ATIVAN IV ALCOHOL WITHDRAWL IV PRN (19:25)
[2021-07-07] MEDS: FOLIC ACID 1 MG in SYRINGE 9.8 ML IV SCH (19:50)
[2021-07-07] MEDS: POTASSIUM CHLORIDE CRTAB 20 MEQ TABCR PO STA ×2 (20:43→20:47)
[2021-07-07] MEDS ORDERED: POTASSIUM CHLORIDE PWD 20 MEQ PACK PO STA (20:54)
[2021-07-07] MEDS ORDERED: MIDODRINE HCL 2.5 MG TAB PO STA ×2 (20:57→23:50)
[2021-07-07] MEDS ORDERED: PIPERACILLIN/TAZOBACTAM 3.375 GM in DEXTROSE 5% 100 ML IV SCH (21:00)
[2021-07-07] MEDS ORDERED: POTASSIUM CHLORIDE CRTAB 20 MEQ TABCR PO ONE (21:30)
[2021-07-07] MEDS ORDERED: POTASSIUM CHLORIDE PWD 20 MEQ PACK PO ONE (22:30)
[2021-07-07] MEDS ORDERED: GABAPENTIN 400 MG CAP PO SCH (23:45)
[2021-07-08] MEDS: ALBUMIN 25% 12.5 GM/50 ML VIAL IV SCH ×7 (00:20→23:49)
[2021-07-08] MEDS: GABAPENTIN 400 MG CAP PO SCH ×2 (00:29→05:20)
[2021-07-08 01:19] LABS: BUN Creatinine Ratio 21.9 (10-20); Calcium 9.1 mg/dl (8.5-10.1); Creatinine Clr Calc Pharmacy 63.8 ml/min; Est GFR (African American) 66.7 ml/min; Est GFR (Non-African American) 57.5 ml/min; Magnesium 2.3 mg/dl (1.8-2.4); Potassium 3.8 mmol/L (3.5-5.1)
[2021-07-08 01:35] LABS: Appearance Urine Cloudy (Clear); Color Urine Brown
[2021-07-08 01:37] LABS: Bacteria Urine 1+ (Negative); Hyaline Casts Urine >30 /lpf (0-5); RBC Urine 0-4 /hpf (0-4)
[2021-07-08] MEDS: POTASSIUM CHLORIDE / WTR 10 MEQ/100 ML PLCT IV SCH ×4 (01:42→06:07)
[2021-07-08] MEDS ORDERED: MIDODRINE HCL 2.5 MG TAB PO STA (03:07)
--- NOTE | 2021-07-08 03:12 | Communication Note ---
Date of Service: July 08, 2021 Recurrent hypotension overnight despite IV albumin and midodrine administration for possible hepatorenal syndrome given increase in creatinine from baseline. AP Recurrent hypotension Possible hepatorenal syndrome ICU transfer for pressor therapy Will relay to AM provider.
[2021-07-08] MEDS ORDERED: STAT IV Infusion **Titration per Protocol STA ×3 (03:46→23:19)
[2021-07-08] MEDS ORDERED: ICU PROTOCOL FOR HYPERGLYCEMIA PRN (04:43)
--- NOTE | 2021-07-08 04:44 | Critical Care Consultation ---
Date of Consultation July 08, 2021 Assessment & Plan (1) Acute hypotension: Reason Critically Ill: 65-year-old male with history of persistent alcohol abuse presents to the ICU with alcohol withdrawal, hypotension, and decompensating acute liver disease. Now requiring vasopressors for hemodynamic support. Neuro - Encephalopathylikely in the setting of alcohol withdrawal as patient has long history of alcohol abuse and reports drinking 10-11 beers per day. He also reports history of seizures with withdrawal -Ammonia 16, BUN within normal limits -CT head without acute intracranial findings -Continue CELESTINE S protocol, IV Ativan as needed -Continue thiamine folic acid regimen -Monitor Cardiac - Hypotensionlikely in the setting of acute liver failure, however cannot rule out sepsis component at this time. See ID treatment below -Patient remains hypotensive after fluid resuscitation and albumin every 6 hours along with midodrine -Now starting patient on Levophed as he is worsening creatinine likely has a component of hepatorenal syndrome -Attempting to maintain maps greater than 75 -Troponin negative, no ST elevation on EKG, QTC prolonged at 525 -Random cortisol pending, could consider stress dose steroids if low -Echo pending CHFpatient with history of CHF but no prior echo, patient is noncompliant with diet/medication regimen -Echo pending, will follow up -Hold on diuresis and antihypertensives for the time being as patient is currently hypotensive -Continuous monitor on telemetry Respiratory - Hypoxiacould likely be multifactorial, however CT chest showed moderate to large right pleural effusion with almost complete collapse of the right lung and moderate left pleural effusion -Cannot rule out pulmonary congestion due to CHF, will hold on diuresis at this time considering hypotension/RENATA -We will consider thoracentesis this a.m. -Currently maintaining oxygen saturation on nasal cannula -Continuous monitoring pulse ox GI - Acute on chronic liver failurepatient presents with worsening liver function and ascites which started 2 weeks ago -CT abdomen pelvis showed nodular hepatic cirrhosis -Bilirubin elevated to 7.2 this morning, INR now elevated to 2.3 -Starting on N-acetylcysteine drip -Underwent paracentesis in ED with 4 L ascites drained. No evidence of SBP at this time, will continue antibiotics all cultures pending -GI following, will follow recommendations -Continue to trend LFTs and bilirubin, trend INR RENAL/LYTES - AKIconsider hepatorenal syndrome in the setting of acute liver failure -Creatinine trending up now 1.45 -We will keep MAP greater than 75 -Careful with fluid resuscitation in the setting of CHF/effusions -Monitor BMPs, no severe electrolyte abnormalities, no acidosis - Foleystrict I's and as ENDO - No history of diabetes or thyroid disease ICU hyperglycemic protocol HEME - Anemia Thrombocytopeniaplatelets stable at 90,000 this morning, trend trend CBCs for now ID - No clear indication for infectious process at this time, however in the setting of hypotension cannot rule completely rule out sepsis? -Peritoneal fluid is inconsistent with infectious process/SBP, will follow up cultures -Blood cultures pending -Pro-Darwin within normal limits, lactate improved, no leukocytosis or fevers -Nasal MRSA negative -COVID-19 negative -We will continue Zosyn for now pending cultures LINES/IV ACCESS - CVC, peripheral IVs DVT PROPHYLAXIS - SCDs, holding anticoagulation in the setting of thrombocytopenia I have personally spent 65 minutes of critical care time in the direct management of this patient. This is a life/limb threatening event. This includes time spent evaluating patient, direct bedside care, chart review, placing orders, interpretation of diagnostic studies, discussion with consultants, patient, and family members, as well as other required patient management activities. This time is exclusive of all separately billable procedures, and teaching time and separate from and in addition to any other critical care service time. Thank you for allowing us to participate in the care of this patient. Please refer to my attending physician's documentation for any further recommendations. (2) Bilateral pleural effusion: (3) Decompensated liver disease: (4) End stage liver disease: (5) Elevated lactic acid level: (6) CHF (congestive heart failure): (7) Hyperbilirubinemia: (8) Abdominal ascites: (9) Alcohol abuse: (10) Alcohol withdrawal: (11) Sepsis: (12) Acute liver failure: Supervising Physician Co-Signing Physician Notes I was present for the bilateral thoracentesis. Both appear to be simple fluid, no evidence of loculation. Continue the current therapies as described above. Palliative care consultation. History of Present Illness Attending Physician: Leeanna Jaquez MD History of Present Illness The patient is a 65-year-old male with past medical history significant for CHF, HTN, and persistent alcohol abuse with reported 10-11 beers per day which she states was recently reduced to 8 beers per day. Patient presents to the emergency department earlier today with complaints of generalized weakness, shortness of breath, over the past week, and worsening abdominal distention over the past 2 weeks. At that time patient stated that he felt like he was beginning withdrawal symptoms and was becoming more agitated and shaking. Patient states that he has had seizure in the past with alcohol withdrawal. EtOH level is negative. In the emergency department he was found to have profound ascites and there was concern for SBP. Paracentesis was performed which drained 4 L of ascites-like fluid from his peritoneum. Peritoneal fluid studies did not appear to be consistent with infectious process, but cultures pending. Blood cultures also collected as patient was found to be somewhat hypotensive and slightly elevated lactate of 2.2. He was started on Zosyn. Chest x-ray revealed moderate left and large right pleural effusions. Patient had elevated bilirubin of 6 and INR 1.9 with meld score of 23. Patient was admitted to PCU initially yesterday evening with decompensated liver failure and alcohol withdrawal. I was notified by the primary team this a.m. that the patient had worsening hypotension despite albumin and fluid resuscitation. Patient had blood pressure 67/39 there was concern that he may be developing worsening hepatorenal syndrome versus sepsis. Patient transferred to the ICU for further management this time. Allergies Allergy/AdvReac Type Severity Reaction Status Date / Time No Known Allergies Allergy Verified 07/07/21 14:59 Home Medications Medication Instructions Recorded Confirmed Type atenolol 50 mg tablet 50 mg PO DAILY 07/07/21 07/07/21 History carvedilol 3.125 mg tablet 3.125 mg PO BID 07/07/21 07/07/21 History epinephrine 0.125 mg/actuation 1 puff INHALATION Q4H PRN 07/07/21 07/07/21 History aerosol inhaler (Primatene Mist) furosemide 40 mg tablet (Lasix) 40 mg PO DAILY 07/07/21 07/07/21 History Patient History Medical History (Updated 07/08/21 @ 09:02 by Jerzy Watson MD) Alcohol abuse CHF (congestive heart failure) Hypertension Surgical History (Updated 07/07/21 @ 17:52 by Sherice Suárez PA-C) No pertinent past surgical history Family History (Updated 07/07/21 @ 17:53 by Sherice Suárez PA-C) Other Heart disease Kidney disease Social History (Updated 07/07/21 @ 17:53 by Sherice Suárez PA-C) Smoking Status: Never smoker Hx Alcohol Use: Yes (states he quit "a week ago" last drink was "last saturday") Alcohol type: beer Hx Substance Use: No Preferred Language: Bulgarian Communication Ability Comment: pt seems confused at times Beliefs That Will Affect Care: None Current Living Situation: Alone Feels Safe at Home: Yes Safety Concerns: Feels Safe At This Time Assistive Devices: Oxygen - Continuous Review of Systems Review of Systems: Unobtainable due to cognitive status Physical Exam Constitutional: + ill appearing, + altered mental status and + frail appearing Eyes: Jaundiced sclera, PERRLA ENMT: external ear and nose normal, oropharynx normal Neck: trachea midline, no thyromegaly Respiratory: normal respiratory effort, lungs clear to auscultation Cardiovascular: RRR, no murmur, no edema Heart Sounds: normal S1 and normal S2 +1 edema bilaterally lower extremities Gastrointestinal (Abdomen): Abdomen distended, nontender, soft. Bowel sounds auscultated all 4 quadrants Skin: Skin jaundiced, no rashes or wounds noted Neurologic: Patient confused, no facial droop, no dysarthria, PERRLA Results & Data Results & Data ([facility]) Vital Signs (Past 12 Hours) Vital Signs Temp Pulse Pulse Resp BP BP Pulse Ox 07/08/21 02:59 36.6 C 75 16 67/39 L 96 07/08/21 01:47 36.7 C 07/08/21 01:06 74 H 81/39 L 07/08/21 00:28 35.8 C L 72/37 L 07/08/21 00:11 36.0 C L 74 18 98 07/07/21 23:50 73 85/47 L 07/07/21 23:00 70 75/45 L 07/07/21 22:55 74 07/07/21 21:19 73 69/42 L 07/07/21 19:25 07/07/21 19:15 36.5 C 73 17 69/41 L 94 07/07/21 19:00 78 20 89/48 L 95 07/07/21 18:30 70 19 90/49 L 95 07/07/21 18:00 68 17 82/44 L 97 07/07/21 17:48 35.1 C L 07/07/21 17:30 68 27 H 92/46 L 96 07/07/21 17:00 70 24 80/54 L 95 07/07/21 16:30 67 20 82/43 L 95 Pulse Ox 07/08/21 02:59 07/08/21 01:47 07/08/21 01:06 07/08/21 00:28 07/08/21 00:11 07/07/21 23:50 07/07/21 23:00 07/07/21 22:55 07/07/21 21:19 07/07/21 19:25 97 07/07/21 19:15 07/07/21 19:00 07/07/21 18:30 07/07/21 18:00 07/07/21 17:48 07/07/21 17:30 07/07/21 17:00 07/07/21 16:30 Coding Level of Care Code Critical Care 1st 30-74 mins Diagnoses Bilateral pleural effusion J90 Decompensated liver disease K74.69 Acute hypotension I95.9 End stage liver disease K72.90 Elevated lactic acid level R79.89 CHF (congestive heart failure) I50.9 Heart failure chronicity: chronic Heart failure type: unspecified Hyperbilirubinemia E80.6 Abdominal ascites R18.8 Alcohol abuse F10.10 Alcohol withdrawal F10.239 Sepsis A41.9 Acute liver failure K72.00 (1) CHF (congestive heart failure) Heart failure chronicity: chronic Heart failure type: unspecified Qualified Code(s): I50.9 - Heart failure, unspecified
[2021-07-08] MEDS ORDERED: ACETAMINOPHEN 325 MG TAB PO PRN (04:57)
[2021-07-08 05:21] LABS: Hematocrit (blood only) 30.8 % (42-52); Mean Corpuscular Hgb Conc 32.5 g/dL (32-36); Mean Corpuscular Volume 110.8 fL (80-100); RDW Coefficient of Variation 18.4 % (11.5-14.5); Red Blood Count 2.78 M/uL (4.7-6.1); White Blood Count 6.97 K/uL (4.8-10.8)
[2021-07-08 05:23] LABS: Mean Platelet Volume 9.9 fL (7.4-10.4); Platelet Count 91 K/uL (130-400)
[2021-07-08 05:30] LABS: INR 2.3 (0.9-1.1); Prothrombin Time 21.6 Seconds (9.0-12.0); pH VBG 7.37 (7.36-7.41)
[2021-07-08 06:05] LABS: Albumin Globulin Ratio 0.7 (0.9-2); BUN Creatinine Ratio 20.1 (10-20); Bilirubin,Total 7.2 mg/dl (0.2-1); Calcium 8.8 mg/dl (8.5-10.1); Creatinine Clr Calc Pharmacy 57.5 ml/min; Est GFR (African American) 58.8 ml/min; Est GFR (Non-African American) 50.7 ml/min; Globulin 4.5 gm/dl (2.5-4.0); Potassium 3.9 mmol/L (3.5-5.1); Total Protein 7.5 gm/dl (6.4-8.2)
[2021-07-08 06:12] LABS: Sodium Random Urine < 5 mmol/L
[2021-07-08 06:13] LABS: Hepatitis B Surf Ag Rflx Conf Neg (Neg)
[2021-07-08] MEDS ORDERED: AcetylCYSTEINE IV 21 HR REGIMEN (>40KG) IV STA (06:17)
[2021-07-08] MEDS: NOREPINEPHRINE/D5W 8 MG/508 ML BAG IV SCH ×3 (06:26→21:58)
[2021-07-08] MEDS ORDERED: ACETYLCYSTEINE IV ONE ×3 (06:30→11:45)
[2021-07-08] MEDS ORDERED: DEXTROSE 5% IV ONE ×3 (06:30→11:45)
[2021-07-08 06:53] LABS: Hepatitis C IgG 13Yrs+Old_Rflx Neg (Neg)
--- NOTE | 2021-07-08 07:10 | CT Scan Report ---
CT SCAN OF THE CHEST, ABDOMEN, AND PELVIS WITHOUT IV CONTRAST CLINICAL HISTORY: Sepsis. Shock. Pleural effusions. Abdominal ascites. Liver failure. COMPARISON STUDY: Chest x-ray dated 07/07/2021. TECHNIQUE: Unenhanced CT scan of the chest, abdomen, and pelvis was performed from the thoracic inlet to the proximal femora. Images are reviewed in the axial, sagittal, and coronal planes. IV contrast was administered for this examination. Note that the examination is significantly suboptimal without oral and IV contrast. A dose lowering technique was utilized adhering to the principles of ALARA. Th e examinations are compromised by motion artifact. CT DOSE: 1336.10 mGy.cm FINDINGS: CHEST: Thyroid: Imaged portions of the thyroid gland are normal in size and attenuation. Thoracic aorta: The thoracic aorta is normal in caliber and demonstrates standard 3-vessel arch anato my. Heart: The heart is enlarged and without pericardial effusion. There are scattered coronary artery ca lcifications. Lungs and pleural spaces: There are moderate left and large right pleural effusions with near-complet e atelectasis of the right lung. Dependent atelectasis/consolidation is seen at the left lung base. T he trachea is clear. Debris/secretions are noted within the right lower lobe airways. Mediastinum: There is no mediastinal lymphadenopathy. Alannah: Not well assessed without IV contrast. Axillae: There is no axillary lymphadenopathy. Bony thorax: No lytic or blastic lesions are identified. There are numerous healed bilateral rib frac tures. A left posterior 11th rib fracture appears acute to subacute. Soft tissues: Gynecomastia is noted. ABDOMEN AND PELVIS: Liver: The unenhanced liver is cirrhotic in morphology and heterogeneous in attenuation. There is nod ularity of the hepatic surface contour. There is no intra- or extrahepatic biliary ductal dilatation. Gallbladder: There are calcified gallstones with no CT evidence of acute cholecystitis. Spleen: The spleen is mildly enlarged measuring 13.6 cm in length. Pancreas: The unenhanced pancreas is atrophic and grossly unremarkable. Adrenal glands: Unremarkable. Kidneys: The unenhanced kidneys demonstrate cortical atrophy and are without hydronephrosis. There is a 3 mm nonobstructing calculus in the right lower pole. No left renal calculi are identified. A 1.4 cm cyst is noted in the left upper pole. Abdominal vasculature: The abdominal aorta is normal in course and caliber noting moderate atheroscle rotic calcification. Bowel: There is no bowel obstruction. A duodenal diverticulum is incidentally noted. The appendix is not clearly visualized. Peritoneum: There is a moderate to large volume of abdominopelvic ascites. No intraperitoneal free ai r is identified. Umbilical and infraumbilical hernias containing ascitic fluid. Lymphadenopathy: None. Pelvic viscera: The prostate gland is diminutive. The bladder is decompressed and grossly unremarkabl e. There is evidence of previous left inguinal herniorrhaphy. Ascitic fluid was contained within a ri ght inguinal hernia. Skeletal structures: There is mild lumbosacral spondylosis. A large hemangioma is noted in the body o f L3. No lytic or blastic lesions are seen. There are healed right pubic ring fractures. Soft tissues: There is body wall edema. IMPRESSION: 1. Significantly suboptimal examination without oral and IV contrast. There is also significant motio n artifact. 2. There is a large right pleural effusion with near-complete atelectasis of the right lung, as well as a moderate left pleural effusion with left basilar consolidation/atelectasis. Correlate clinically for evidence of superimposed pneumonia. 3. Cardiomegaly. 4. Cirrhotic liver morphology. 5. A moderate to large volume of abdominopelvic ascites and mild splenomegaly indicate portal hyperte nsion. 6. Cholelithiasis. 7. No bowel obstruction. 8. Right-sided nephrolithiasis. Benign. A left posterior 11th rib fracture appears acute to subacute. Correlate for point tenderness. 9. Debris/secretions fill the right lower lobe airways. Correlate clinically for evidence of aspirati on. 10. Additional findings as above. ACT 112: Negative or not required by law. Electronically signed by: Leonardo Kirkland M.D. 07/08/2021 7:09 AM
--- NOTE | 2021-07-08 07:41 | Electrocardiogram Report ---
Test Reason : Blood Pressure : / mmHG Vent. Rate : 070 BPM Atrial Rate : 070 BPM P-R Int : 082 ms QRS Dur : 092 ms QT Int : 374 ms P-R-T Axes : -10 008 228 degrees QTc Int : 403 ms Poor data quality, interpretation may be adversely affected Sinus rhythm with short MS Low voltage QRS Cannot rule out Anterior infarct , age undetermined Abnormal ECG No previous ECGs available Confirmed by Benjy Leija ([id number]) on 07/08/2021 7:41:03 AM Referred By: Confirmed By:Benjy Leija
[2021-07-08] MEDS ORDERED: THIAMINE HCL 100 MG TAB PO SCH (09:00)
--- NOTE | 2021-07-08 09:05 | Pulmonary Consultation ---
Date of Consultation July 08, 2021 Assessment & Plan (1) Bilateral pleural effusion: (2) Decompensated liver disease: (3) Acute respiratory failure with hypoxia: (4) Acute liver failure: CT chest 07/08/2021 personally reviewed: Large right-sided pleural effusion with complete atelectasis of the right lung, small to moderate amount left-sided pleural effusion Large volume ascites with hepatomegaly And significant mediastinal adenopathy --Acute hypoxic respiratory failure Likely secondary to large right-sided pleural effusion COVID-19 PCR negative The most likely etiology of the pleural effusion is ascites. --Bilateral pleural effusions Multifactorial Decompensated liver failure with cirrhosis playing a significant role --Acute metabolic encephalopathy with hypotension Plan as per ICU Plan: Patient already had paracentesis done on 07/07/2021 Recommend a pigtail catheter on the right side of the chest to gradually drain the fluid I would not take out more than 1.5 L in a day Overall prognosis of the patient is very poor Recommend palliative care I do not think patient should have escalation of care as it is futile and inappropriate Case was discussed with Dr. Brown Please note the above document was generated using voice recognition software. It may contain grammatical, syntax or spelling errors.Any formal questions or concerns about the content, text or information contained within the body of this dictation should be directly addressed to the provider for clarification. History of Present Illness Attending Physician: Kamran Donaldson MD History of Present Illness 65-year-old male past medical history of liver cirrhosis, alcohol abuse, CHF present to the hospital with complaints of worsening shortness of breath Patient had paracentesis and 4 L of acetic fluid was removed. Pulmonary were consulted because of the CAT scan that the patient had. Overnight patient got hypotensive and he was transferred to the ICU In the ICU patient had left IJ and he was started on low-dose Levophed He is lethargic with altered mental status Not a good historian He was running on his right side saturating 92% Allergies Allergy/AdvReac Type Severity Reaction Status Date / Time No Known Allergies Allergy Verified 07/07/21 14:59 Home Medications Medication Instructions Recorded Confirmed Type atenolol 50 mg tablet 50 mg PO DAILY 07/07/21 07/07/21 History carvedilol 3.125 mg tablet 3.125 mg PO BID 07/07/21 07/07/21 History epinephrine 0.125 mg/actuation 1 puff INHALATION Q4H PRN 07/07/21 07/07/21 History aerosol inhaler (Primatene Mist) furosemide 40 mg tablet (Lasix) 40 mg PO DAILY 07/07/21 07/07/21 History Patient History Medical History (Updated 07/08/21 @ 09:02 by Jerzy Watson MD) Alcohol abuse CHF (congestive heart failure) Hypertension Surgical History (Updated 07/07/21 @ 17:52 by Sherice Suárez PA-C) No pertinent past surgical history Family History (Updated 07/07/21 @ 17:53 by Sherice Suárez PA-C) Other Heart disease Kidney disease Social History (Updated 07/07/21 @ 17:53 by Sherice Suárez PA-C) Smoking Status: Never smoker Hx Alcohol Use: Yes (states he quit "a week ago" last drink was "last saturday") Alcohol type: beer Hx Substance Use: No Preferred Language: Luxembourgish Communication Ability Comment: pt seems confused at times Beliefs That Will Affect Care: None Current Living Situation: Alone Feels Safe at Home: Yes Safety Concerns: Feels Safe At This Time Assistive Devices: Oxygen - Continuous Review of Systems Review of Systems: Unobtainable due to mental health condition Physical Exam Physical Exam: Constitutional: In respiratory distress HEENT: PERRLA, icteric sclera Respiratory system: Decreased air entry bilaterally, more decreased on the right side, no wheeze, crackles bilateral lower lobes CVS: S1-S2 positive, no murmurs or gallops Abdomen: Soft, distended, decreased bowel sounds, positive hepatomegaly Extremities: +2 pulses bilaterally radialis/ dorsalis pedis, no cyanosis, +2 pitting edema bilateral lower extremity, cold extremities Neuro: Somnolent, Psych: Unable to assess G/U: Positive Stewart Results & Data Results & Data ([facility]) Vital Signs (Past 12 Hours) Vital Signs Temp Pulse Pulse Resp BP Pulse Ox 07/08/21 08:44 83/52 L 07/08/21 02:59 36.6 C 75 16 67/39 L 96 07/08/21 01:47 36.7 C 07/08/21 01:06 74 H 81/39 L 07/08/21 00:28 35.8 C L 72/37 L 07/08/21 00:11 36.0 C L 74 18 98 07/07/21 23:50 73 85/47 L 07/07/21 23:00 70 75/45 L 07/07/21 22:55 74 07/07/21 21:19 73 69/42 L 07/08/21 05:12 07/08/21 05:12 PG Care Time/CCT Total # of Minutes Spent Total Time Spent with Patient: Total time spent is greater than 50% in coordination of care (as documented) at patient's floor/unit and/or counseling patient: Coding Level of Care Code 91152 Initial Inpt Care Lvl 3 Diagnoses Bilateral pleural effusion J90 Decompensated liver disease K74.69 Acute respiratory failure with hypoxia J96.01 Acute liver failure K72.00
--- NOTE | 2021-07-08 09:36 | Procedure Note ---
Procedure Note Date of Service July 08, 2021 Note INDICATION: Left pleural effusion PROCEDURE: Left thoracentesis DATE: 07/08/2021 PROVIDER: RYAN Waldron CONSENT: Two-physician consent was obtained prior to the procedure by Dr. Brown and Dr. Gagnon And placed on the chart PROCEDURE SUMMARY: Bedside ultra sound was performed to identify an appropriate puncture site. Images were saved to the Picture[employer] system. A time out was performed. The patient was prepped and draped in a sterile manner using chlorhexidine scrub after the appropriate level was confirmed by ultrasound. 1% lidocaine was used to numb the region. A finder needle was then used under negative pressure to locate fluid and instill lidocaine into the pleural space. A small incision was made with a #10 scalpel. A needle with overlying catheter was advanced using negative pressure on the syringe until a pleural flash was obtained. The thoracentesis catheter was then threaded without difficulty and without any bleeding. The patient had 800 mL of straw- colored fluid removed. The incision site was then covered with a Band-Aid with no evidence of bleeding. Dr. Higinio Brown was at the bedside during the procedure No immediate complications were noted during the procedure. A post-procedure chest x-ray was completed and reviewed at bedside by this provider and no pneumothorax was identified. The patient tolerated the procedure well with no shortness of breath, no hypotension, no increase in heart rate, and no other acute symptoms. Coding CPT Codes Pulmonary/Thoracic - Pulmonary and Thoracic: 08604 Thoracentesis w imaging ([id number]) [facility] [place] Procedure Codes (Charges) Pulmonary/Thoracic Procedure 1: Pulmonary and Thoracic: 06004 Thoracentesis w imaging
--- NOTE | 2021-07-08 09:36 | Procedure Note ---
Procedure Note Date of Service July 08, 2021 Note INTERNAL JUGULAR CENTRAL LINE PROCEDURE NOTE: Procedure: Internal Jugular Central Line Placement Attending: Dr. Higinio Brown Provider: RYAN Waldron Indication: Central Drug Administration Anesthesia: Lidocaine 1% Two-physician consent was signed and placed on the chart prior to procedure as patient is confused and without POA. A time-out was completed verifying correct patient, procedure, site, positioning, and implants(s) or special equipment if applicable. Patients left neck was cleansed and draped in the typical sterile fashion using Chloraprep. The Internal Jugular Vein and Carotid Artery were identified using ultrasound. The superficial tissue was anesthetized using 5 mL of 1% lidocaine without epinephrine under direct visualization with the ultrasound. After adequate anesthetization was achieved, the Internal Jugular vein was cannulated under direct ultrasound guidance using an introducer needle on a syringe. Good venous blood return was maintained prior to removal of syringe from introducer needle. Using Seldinger Technique, a guide wire was advanced through the introducer needle without resistance. The introducer needle was removed and ultrasound images were obtained of the guide wire within the Internal Jugular Vein and saved to the patients medical record. A small incision was made in penetrating fashion at the guide wire insertion site utilizing an 11 blade scalpel. The dilator was advanced to the vessel without resistance. The dilator was exchanged for the triple lumen catheter which was advanced into the vessel without resistance. The guide wire was removed intact from the catheter without issue. Claves were placed on each catheter tip with confirmation of good blood flow from each lumen. Each port was easily flushed with sterile saline. The catheter was placed at 17 cm and sut[address] in place. BioPatch was applied to the catheter and a sterile Tegaderm dressing was applied over the catheter with careful attention to sterility. Patient tolerated procedure well. No immediate c omplications were met. Post procedure x-ray was completed, placement was appropriate and no pneumothorax was noted. Images obtained are saved for permanent record Procedural Ultrasound Guidance: Procedure Date: 07/08/2021 Indication: Central venous catheter insertion Attending: Dr. Higinio Brown Provider: RYAN Waldron Artery AND Vein visualized: Yes Compressible Vein: Yes Guidewire or Short Catheter seen in vein prior to dilation: Yes Line confirmed in Vein with ultrasound: Yes Images obtained are saved for permanent record. Coding CPT Codes Tubes, Drains, and Vasc Access - Tubes, Drains, and Vasc Access: [id number] Place catheter in vein superior or inferior vena cava ([id number]) Tubes, Drains, and Vasc Access - Tubes, Drains, and Vasc Access: [id number] Ultrasound Guidance For Vascular ([id number]) [facility] [place] Procedure Codes (Charges) Tubes, Drains, and Vasc Access Procedure 1: Tubes, Drains, and Vasc Access: [id number] Place catheter in vein superior or inferior vena cava Procedure 2: Tubes, Drains, and Vasc Access: [id number] Ultrasound Guidance For Vascular
--- NOTE | 2021-07-08 09:37 | Procedure Note ---
Procedure Note Date of Service July 08, 2021 Coding
--- NOTE | 2021-07-08 10:24 | Procedure Note ---
Procedure Note Date of Service July 08, 2021 Note INDICATION: Right pleural effusion PROCEDURE: Right thoracentesis DATE: 07/08/2021 PROVIDER: Jcarlos DAVIS CONSENT: Two-physician consent was obtained prior to the procedure by Dr. Brown and Dr Gagnon. And placed on the chart PROCEDURE SUMMARY: Bedside ultra sound was performed to identify an appropriate puncture site. Images were saved to the [employer] system. A time out was performed. The patient was prepped and draped in a sterile manner using chlorhexidine scrub after the appropriate level was confirmed by ultrasound. 1% lidocaine was used to numb the region. A finder needle was then used under negative pressure to locate fluid and instill lidocaine into the pleural space. A small incision was made with a #10 scalpel. A needle with overlying catheter was advanced using negative pressure on the syringe until a pleural flash was obtained. The thoracentesis catheter was then threaded without difficulty and without any bleeding. The patient had 1000 mL of strawberry colored fluid removed. The incision site was then covered with two Band-Aids with no evidence of bleeding. No immediate complications were noted during the procedure. Dr. Higinio Brown was at the bedside during the procedure. A post-procedure chest x-ray was completed and reviewed at bedside by this provider and no pneumothorax was identified. The patient tolerated the procedure well with no shortness of breath, no hypotension, no increase in heart rate, and no other acute symptoms. Coding CPT Codes Pulmonary/Thoracic - Pulmonary and Thoracic: 25177 Thoracentesis w imaging ([id number]) [facility] [place] Codes (Charges) Pulmonary/Thoracic Procedure 2: Pulmonary and Thoracic: 64046 Thoracentesis w imaging
[2021-07-08] MEDS: FOLIC ACID 1 MG in SYRINGE 9.8 ML IV SCH (10:34)
--- NOTE | 2021-07-08 10:38 | XRay Report ---
SINGLE VIEW CHEST CLINICAL HISTORY: Status post thoracentesis. Central venous catheter placement. FINDINGS: 2 AP, portable, upright chest radiographs are compared to study dated 07/07/2021 and correla fatimah with chest CT performed the same day 07/08/2021. The examination is degraded by portable technique and patient rotation. A left internal jugular central venous catheter has been placed. The tip proje cts over the SVC. The heart is enlarged. The pulmonary vasculature is congested. There is a layering right pleural effusion with right basilar consolidation. A small pleural effusion is seen on the left . No pneumothorax is seen. The skeletal structures are osteopenic. There are healed bilateral rib fra ctures. IMPRESSION: 1. A left internal jugular central venous catheter has been placed as above. No pneumothorax is ident ified post procedure. 2. Right pleural effusion with associated right basilar consolidation. This has decreased in size fro m yesterday. 3. A small pleural effusion is seen on the left. 4. Cardiomegaly with pulmonary vascular congestion. ACT 112: Negative or not required by law. Electronically signed by: Leonardo Kirkland M.D. 07/08/2021 10:37 AM
[2021-07-08] MEDS: FAMOTIDINE 20 MG in SYRINGE 3 ML IV SCH ×2 (10:41→20:42)
[2021-07-08 10:45] LABS: Glucose Pleural Fluid 119 mg/dl
[2021-07-08 11:01] LABS: Total Protein Pleural Fluid 2.3 g/dl
[2021-07-08 11:36] LABS: Appearance Pleural Fluid CLOUDY; Basophils, Fluid 0 %; Color Pleural Fluid AMBER; Eosinophils, Fluid 0 %; Lymphocytes, Fluid 87 %; Mono,Macrophage,Mesothelial 9 %; Neutrophils, Fluid 4 %; RBC Pleural Fluid (A) 14000 /uL; WBC Pleural Fluid (A) 477 /uL
[2021-07-08 12:20] LABS: Source Pleural Fluid LEFT PLEURAL FLUID
[2021-07-08] MEDS ORDERED: PHARMACY GLYCEMIC MGMT CONSULT PRN (12:59)
[2021-07-08] MEDS ORDERED: GLUCOSE 10 TABS/TUBE PO PRN (13:15)
[2021-07-08] MEDS ORDERED: GLUCOSE 40% GEL 15 GM TUBE PO PRN (13:15)
[2021-07-08] MEDS ORDERED: INSULIN ASPART 100 UNITS/ML 3 ML PEN SC SCH (13:15)
[2021-07-08] MEDS ORDERED: DEXTROSE 50% 50 ML SYRINGE IV PRN (13:15)
[2021-07-08] MEDS ORDERED: GLUCAGON FOR INJ 1 MG VIAL SQ PRN (13:15)
[2021-07-08] MEDS ORDERED: INSULIN GLARGINE SOLOSTAR 100 UNITS/ML 3 ML PEN SC ONE (13:15)
[2021-07-08] MEDS ORDERED: CARBOHYDRATES FOR HYPOGLYCEMIA PO PRN (13:15)
[2021-07-08] MEDS ORDERED: GABAPENTIN 400 MG CAP PO SCH ×2 (13:45→14:00)
--- NOTE | 2021-07-08 14:50 | Pharmacy Report ---
Pharmacy Glycemic Short Note 2 - Date of Service July 08, 2021 - Glycemic Short BSG Results (Last 24 hours): 07/07/21 07/08/21 07/08/21 16:53 00:36 03:10 Glucose 104 H 106 H POC Glucose 100 H 07/08/21 07/08/21 05:12 12:49 Glucose 106 H POC Glucose 204 H OUTPATIENT ANTIDIABETIC REGIMEN: * None ASSESSMENT: * 65 y/o M admitted for cirrhosis and alcohol withdrawal. Patient does not have a known history of diabetes and was not any anti-diabetic meds prior to admission. * Pharmacy consulted today afternoon for glycemic control while admitted. * Fasting BSG today was 106 mg/dl. Noon BSG check today was elevated to 204 mg/dl. Basal insulin x 1 started this afternoon. * Novolog bolus insulin was also started to cover the noon BSG based on wt and stress of 2 and wide BSG goal range of 140-180 mg/dl * Currently, both Levofed and Acetylcysteine drips are infusing. Both drips are prepared in Dextrose which is most likely contributing to the high BSG. PLAN FOR INPATIENT GLYCEMIC CONTROL: * Basal insulin * Lantus 15 units SQ x 1 dose this afternoon. Will re-assess tomorrow. * Bolus insulin * NovoLog per scale ACHS or Q6hrs while NPO * Goal Range: Low 140 mg/dL - High 180 mg/dL * Correction Factor: 25 mg/dL/unit * Nutritional / Prandial insulin per carb ratio of 1 unit per 8 grams CHO consumed PLAN FOR DISCHARGE: * TBD
[2021-07-08 14:52] LABS: iSTAT Site Heel Stick; iSTAT Venous Carbon Dioxide > 40 mmol/L (24-31)
[2021-07-08] MEDS ORDERED: Nursing to Pharmacy Communication SCH (15:45)
[2021-07-08] MEDS ORDERED: fentaNYL citrate 100 MCG/2 ML VIAL ONE (15:49)
[2021-07-08] MEDS ORDERED: RAPID SEQUENCE INDUCTION BAG ONE (15:56)
--- NOTE | 2021-07-08 16:03 | Procedure Note ---
Procedure Note Date of Service July 08, 2021 Note Procedure Date: Noted above Procedure: Endotracheal intubation Pre-procedure Diagnosis: Hypercapnic respiratory failure altered mental status Post-procedure Diagnosis: same as above Prior to Procedure: Informed Consent: emergent Attending Staff: Sherin Brown DO The identity of the patient was confirmed and a bedside time out was performed. Description of Procedure: Patient was evaluated and required intubation for impending respiratory failure. The patient was prepared in the usual fashion. A Dong 2 laryngoscope was used. A 8 mm inner diameter endotrachial tube was placed endotracheally to 23 cm at the teeth. A grade 1 view was obtained. The endotracheal tube was noted to pass through the vocal cords. Chest rise was bilateral. Bilateral breath sounds were heard without air sounds in the abdomen. Mist was noted in the endotracheal tube. End-tidal CO2 measurement was positive. Chest x-ray shows proper endotracheal tube placement. Complications: None Findings: Not applicable Specimens: Not applicable Estimated blood loss: Zero Coding CPT Codes Resuscitation - Resuscitation: 79124 Endotracheal Intubation, emergency ([id number]) [facility] – [place] Procedure Codes (Charges) Resuscitation Resuscitation: 19399 Endotracheal Intubation, emergency
--- NOTE | 2021-07-08 16:36 | XRay Report ---
SINGLE VIEW CHEST CLINICAL HISTORY: Respiratory failure. Intubation. FINDINGS: An AP, portable, semierect chest radiograph is compared to chest x-ray and chest CT dated . The examination is degraded by portable technique and patient rotation. An endotracheal tub e has been placed. The tip projects approximately 4 cm above the eleazar. An enteric tube has been aram efe. This extends below the diaphragm and the tip is not visualized. A left internal jugular central venous catheter is unchanged in position. The heart is enlarged. The pulmonary vasculature is congest ed. There are right larger than left pleural effusions with associated bibasilar consolidation. No pn eumothorax is seen. The skeletal structures are osteopenic. There are healed bilateral rib fractures. IMPRESSION: 1. Endotracheal and enteric tube placement as above. 2. Cardiomegaly with evidence of congestive failure. 3. Right larger than left pleural effusions with bibasilar consolidation. ACT 112: Negative or not required by law. Electronically signed by: Leonardo Kirkland M.D. 07/08/2021 4:35 PM
--- NOTE | 2021-07-08 16:53 | Hospitalist Progress Note ---
Date of Service July 08, 2021 Assessment & Plan (1) Hypercapnic respiratory failure: (2) Encephalopathy: (3) Acute hypotension: (4) Decompensated liver disease: Plan: Pt is currently admitted to the ICU - intubated due to hypercapnic respiratory failure - s/p paracentesis and b/l thoracentesis - Abx was discontinued: ascitic fluid analysis showed no sign of SBP - currently on Levophed for hypotension - received albumin - Palliative consult pending (5) Bilateral pleural effusion: Plan: CXR with moderate to large right pleural effusion. Moderate left pleural effusion. 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 Echo (07/08): EF of 65-70% Admission and Anticipated Discharge Date Admission Date: July 07, 2021 Subjective Pt is a 65 y/o M with hx of CHF, HTN, ETOH abuse was initially admitted for worsening abd distention, SOB and weakness - He underwent paracentesis yesterday and overnight pt becomes hypotensive needed ICU transfer and Levophed - Today pt had b/l thoracentesis for b/l pleural effusion At bedside today: pt was drowsy and responding to verbal stimuli Review of Systems Review of Systems: Unobtainable due to cognitive status Physical Exam Physical Exam: General:obtunded, not responsive to verbal stimuli HEENT: L IJ in place Lungs:during my exam pt was not intubated- fair air entry b/l with diffuse rales Heart:. Normal S1, S2, no murmur Abdominal:.distended, no fluid wave Results & Data Results & Data ([facility]) Vital Signs (Past 12 Hours) Vital Signs Temp Pulse Resp BP BP Pulse Ox 07/08/21 14:01 35.5 C L 69 15 117/73 99 07/08/21 13:22 73 07/08/21 13:01 35.4 C L 69 14 117/70 100 07/08/21 12:01 35.3 C L 72 17 102/66 100 07/08/21 11:32 35.3 C L 77 18 112/64 92 07/08/21 10:31 35.5 C L 81 23 107/65 97 07/08/21 10:11 35.6 C L 78 19 114/76 92 07/08/21 09:50 35.7 C L 77 22 114/78 94 07/08/21 09:09 35.7 C L 76 21 86/51 L 86/51 L 98 07/08/21 08:44 83/52 L 07/08/21 08:37 35.7 C L 75 17 83/52 L 98 07/08/21 07:38 75 20 91/56 L 98 07/08/21 06:38 72 21 98/64 L 95 Laboratory Results Short CBC 07/08/21 Range/Units 05:12 WBC 6.97 (4.8-10.8) K/uL Hgb 10.0 L (14.0-18.0) g/dL Hct 30.8 L (42-52) % Plt Count 91 L (130-400) K/uL BMP 07/07/21 07/08/21 07/08/21 16:53 00:36 05:12 Sodium 136 136 135 L Potassium 3.2 L 3.8 D 3.9 Chloride 94 L 94 L 95 L Carbon Dioxide 37 H 34 H 35 H BUN 25 H 28 H 29 H Creatinine 1.12 1.28 1.42 H Glucose 104 H 106 H 106 H Calcium 8.6 9.1 8.8 Cardiac Enzymes 07/07/21 Range/Units 16:53 Troponin I < 0.015 (0-0.045) ng/ml Liver Function 07/07/21 07/08/21 Range/Units 16:53 05:12 Total Bilirubin 6.3 H 7.2 H (0.2-1) mg/dl AST 76 H 74 H (15-37) U/L ALT 25 25 (12-78) U/L Alkaline Phosphatase 60 53 (45-117) U/L Albumin 1.8 L 3.0 L (3.4-5.0) gm/dl Urine 07/08/21 Range/Units 00:28 Urine Color Brown Urine Appearance Cloudy A (Clear) Urine pH (4.5-7.5) Ur Specific [place] 1.020 (1.000-1.030) Urine Protein (Negative) Urine Glucose (UA) (Negative) (1) CHF (congestive heart failure) Heart failure chronicity: chronic Heart failure type: unspecified Qualified Code(s): I50.9 - Heart failure, unspecified
[2021-07-08] MEDS: INSULIN ASPART 100 UNITS/ML 3 ML PEN SC SCH (18:56)
[2021-07-08] MEDS: VASOPRESSIN 20 UNITS in 0.9 % SODIUM CHLORIDE 100 ML IV SCH (20:41)
[2021-07-08] MEDS: LACTULOSE SYRUP 30 GM/45 ML UDP PO SCH (20:42)
[2021-07-08] MEDS ORDERED: ETOMIDATE 2 MG/ML 20 ML VIAL IV ONE (21:08)
[2021-07-08] MEDS ORDERED: fentaNYL citrate 100 MCG/2 ML VIAL IV ONE (21:08)
[2021-07-08] MEDS: GABAPENTIN 250 MG/5 ML 470 ML BTL PO SCH (21:58)
[2021-07-08 22:44] LABS: BUN Creatinine Ratio 19.9 (10-20); Creatinine Clr Calc Pharmacy 52.9 ml/min; Est GFR (African American) 52.9 ml/min; Est GFR (Non-African American) 45.6 ml/min
--- NOTE | 2021-07-08 23:09 | Consultation Report ---
GASTROENTEROLOGY CONSULT NOTE DATE OF CONSULTATION: 07/08/2021 REFERRED BY: Miki Suárez MD. REASON FOR CONSULTATION: I was asked by Dr. Suárez to consult on this gentleman for evaluation of end-stage liver disease. HISTORY OF PRESENT ILLNESS: The patient is a 65-year-old who presented with worsening shortness of breath over the past week. Unclear history of past medical care. On admission, he stated he rarely seeks medical care. He has been feeling weak and short of breath over the past week, and a friend kept checking on him. He lives alone. He was too weak to answer the door and his friend called EMS. Upon examination in our ER, he was found to have a distended abdomen. He has a long history of alcohol abuse and had been drinking alcohol up to when he presented to the Emergency Room. There is a history of symptoms of alcohol withdrawal, though no documentation of this. He has a history of seizures in the setting of alcohol withdrawal. The patient states that he has a history of jaundice. He was admitted to the hospital and over the past several hours has had decreasing mental status, increasing shortness of breath and hypotension. HOME MEDICATIONS: Include atenolol, carvedilol, Lasix and inhalers, though compliance is questionable. ALLERGIES: He denies any drug allergies. SOCIAL HISTORY: Significant for ongoing alcohol abuse. PAST MEDICAL HISTORY: Significant for CHF, hypertension and alcohol abuse. FAMILY HISTORY: Negative for gastrointestinal disease. REVIEW OF SYSTEMS: Currently cannot be obtained, but there has been no reported productive cough, though he has had shortness of breath. There is no mention of atypical chest pain, though he has had increasing abdominal girth, jaundice, altered mental status, lower extremity swelling. PHYSICAL EXAMINATION: GENERAL: Reveals a jaundiced gentleman lying in ICU bed, appearing ill and obtunded. VITAL SIGNS: His most recent blood pressure is 86/51, pulse is 73, temperature is 36.6. HEENT: Skin is icteric with icteric sclerae. Mouth is dry. NECK: Has a monitoring line in. LUNGS: He has poor air movement. ABDOMEN: Distended, but with good bowel sounds. EXTREMITIES: Warm with faint distal pulses and edematous. LABORATORIES: Show a white blood cell count of 2.7, hemoglobin of 10, platelet count of 91. INR of 2.3. Liver enzymes show a total bilirubin of 7.2, AST of 74, ALT of 25, ammonia 57, alkaline phosphatase of 53. Glucose is 204. BUN and creatinine are 29 and 1.4 respectively. IMAGING: Shows a large right pleural effusion, cardiomegaly, cirrhotic liver morphology, large volume of ascites, cholelithiasis. IMPRESSION AND PLAN: A 65-year-old gentleman with end-stage liver disease and respiratory decompensation as well as mental status decompensation. This is very poor prognosis. I recommend considering nasogastric tube placement to administer lactulose to see if we can get his bowel movements improved and possibly improve his ammonia level to see if his mental status responds to this. Alternatively, lactulose enemas may need to be used. Consider discussion of end of life matters since the prognosis is very poor. He has evidence of significant liver dysfunction and end-organ damage. I will continue to follow with you. It does not appear that he has spontaneous bacterial peritonitis given his current body fluid numbers. Job ID: [id number] MTDD
[2021-07-08] MEDS ORDERED: POTASSIUM CHLORIDE 20 MEQ/15 ML UDC PO STA (23:19)
[2021-07-08] MEDS ORDERED: MIDAZOLAM BOLUS FROM BAG IV PRN (23:19)
[2021-07-08] MEDS ORDERED: MIDAZOLAM HCL 125 MG/250 ML BAG IV SCH (23:30)
[2021-07-08] MEDS: POTASSIUM CHLORIDE / WTR 20 MEQ/100 ML PLCT IV SCH (23:46)
[2021-07-09] MEDS: INSULIN ASPART 100 UNITS/ML 3 ML PEN SC SCH ×5 (00:17→23:55)
[2021-07-09] MEDS: POTASSIUM CHLORIDE / WTR 20 MEQ/100 ML PLCT IV SCH (02:00)
[2021-07-09] MEDS: NOREPINEPHRINE/D5W 8 MG/508 ML BAG IV SCH ×3 (03:57→22:12)
[2021-07-09] MEDS: VASOPRESSIN 20 UNITS in 0.9 % SODIUM CHLORIDE 100 ML IV SCH ×3 (03:57→22:13)
[2021-07-09 04:01] LABS: Hepatitis A Antibody IgM NON-REACTIVE (NON-REACTIVE); Hepatitis B Core Antibody IgM NON-REACTIVE (NON-REACTIVE)
[2021-07-09 05:13] LABS: Hematocrit (blood only) 31.5 % (42-52); Hemoglobin 10.6 g/dL (14.0-18.0); Mean Corpuscular Hemoglobin 35.9 pg (25-34); Mean Corpuscular Hgb Conc 33.7 g/dL (32-36); Mean Corpuscular Volume 106.8 fL (80-100); RDW Coefficient of Variation 18.4 % (11.5-14.5); RDW Standard Deviation 70.7 fL (36.4-46.3); Red Blood Count 2.95 M/uL (4.7-6.1); White Blood Count 8.24 K/uL (4.8-10.8)
[2021-07-09 05:20] LABS: Mean Platelet Volume 9.7 fL (7.4-10.4); Platelet Count 93 K/uL (130-400)
[2021-07-09 05:42] LABS: Albumin Globulin Ratio 0.7 (0.9-2); Albumin Level 2.9 gm/dl (3.4-5.0); BUN Creatinine Ratio 18.6 (10-20); Bilirubin,Total 8.1 mg/dl (0.2-1); Calcium 8.9 mg/dl (8.5-10.1); Est GFR (African American) 55.5 ml/min; Est GFR (Non-African American) 47.9 ml/min; Globulin 4.1 gm/dl (2.5-4.0); Phosphorus 0.8 mg/dl (2.5-4.9); Potassium 3.3 mmol/L (3.5-5.1)
[2021-07-09] MEDS ORDERED: POTASSIUM PHOS 3 MMOL/1 ML INFUSION IV STA (05:44)
[2021-07-09 05:57] LABS: iSTAT Allen Test Pass; iSTAT Arterial Blood Gas HCO3 32 meg/L (19-24); iSTAT Arterial Blood Gas pCO2 33 mmHg (35-46); iSTAT Arterial Blood Gas pH 7.59 (7.35-7.45); iSTAT Arterial Blood Gas pO2 73 mmHg (80-95); iSTAT Carbon Dioxide 33 mmol/L (24-31); iSTAT FiO2 40 %; iSTAT Site L Radial
[2021-07-09] MEDS: ALBUMIN 25% 12.5 GM/50 ML VIAL IV SCH ×4 (06:03→23:54)
[2021-07-09] MEDS: GABAPENTIN 250 MG/5 ML 470 ML BTL PO SCH ×2 (06:03→18:07)
[2021-07-09] MEDS ORDERED: POTASSIUM PHOSPHATE 40 MMOL in SODIUM CHLORIDE 0.9% 1000ML 1,000 ML IV ONE (06:15)
[2021-07-09 06:45] LABS: INR 2.7 (0.9-1.1); Prothrombin Time 25.7 Seconds (9.0-12.0)
[2021-07-09] MEDS ORDERED: PHYTONADIONE 5 MG in SODIUM CHLORIDE 0.9% 50 ML IV ONE (06:58)
[2021-07-09] MEDS ORDERED: PROPOFOL BOLUS FROM BAG IV PRN (07:09)
[2021-07-09] MEDS ORDERED: STAT IV Infusion **Titration per Protocol STA ×2 (07:09→21:51)
[2021-07-09] MEDS: propofoL 1,000 MG/100 ML VIAL IV SCH ×3 (07:20→22:10)
--- NOTE | 2021-07-09 07:25 | Electrocardiogram Report ---
Test Reason : Blood Pressure : / mmHG Vent. Rate : 068 BPM Atrial Rate : 068 BPM P-R Int : 140 ms QRS Dur : 096 ms QT Int : 494 ms P-R-T Axes : 057 030 -79 degrees QTc Int : 525 ms Poor data quality, interpretation may be adversely affected Normal sinus rhythm Possible Left atrial enlargement Low voltage QRS Cannot rule out Anterior infarct (cited on or before 07-JUL-2021) Nonspecific T wave abnormality Abnormal ECG When compared with ECG of 07-JUL-2021 14:00, ND interval has increased QT has lengthened Confirmed by Corwin Tavares ([id number]) on 07/09/2021 7:24:37 AM Referred By: REFERRED SELF Confirmed By:Corwin Tavares
[2021-07-09] MEDS ORDERED: PIPERACILL/TAZOBAC CONSULT ACTIVE PRN (07:48)
[2021-07-09] MEDS: LACTULOSE SYRUP 30 GM/45 ML UDP PO SCH ×2 (08:08→22:12)
[2021-07-09] MEDS: FOLIC ACID 1 MG in SYRINGE 9.8 ML IV SCH (08:09)
[2021-07-09] MEDS: FAMOTIDINE 20 MG in SYRINGE 3 ML IV SCH ×2 (08:09→22:11)
--- NOTE | 2021-07-09 08:24 | XRay Report ---
XR chest 1V portable HISTORY: Respiratory failure. COMPARISON: Chest 06/30/2021. FINDINGS: Endotracheal tube terminates 3.5 cm from the eleazar. Nasogastric tube terminus below the di aphragm. The tip is not on this study. There is a left jugular central venous catheter which terminat es at the proximal SVC. This is also unchanged. No pneumothorax. Moderate to large right and small le ft pleural effusions have increased in size. There is diffuse interstitial/vascular thickening which has progressed. This likely represents pulmonary edema. A superimposed pneumonia cannot be excluded. IMPRESSION: 1. Interval progression of the moderate pulmonary edema and bilateral pleural effusions, right greate r than left. 2. Satisfactory support line placement. ACT 112: Negative or not required by law. Electronically signed by: Padilla Crews M.D. 07/09/2021 8:22 AM
[2021-07-09] MEDS ORDERED: PIPERACILLIN/TAZOBACTAM 3.375 GM in DEXTROSE 5% 100 ML IV ONE (08:35)
[2021-07-09] MEDS: PIPERACILLIN/TAZOBACTAM 3.375 GM in DEXTROSE 5% 100 ML IV SCH ×2 (08:45→08:53)
[2021-07-09] MEDS ORDERED: INSULIN GLARGINE SOLOSTAR 100 UNITS/ML 3 ML PEN SC ONE ×4 (09:00→21:00)
[2021-07-09 12:28] LABS: Appearance Urine Turbid (Clear); Bacteria Urine Automated Negative (Negative); Blood Urine 3+ (Negative); Color Urine Orange; Glucose Urine UA Negative (Negative); Ketones Urine Trace (Negative); Leukocyte Esterase Urine Trace (Negative); Nitrite Urine Positive (Negative); Protein Urine Trace (Negative); RBC Urine Automated >30 /hpf (0-4); Specific Gravity Urine 1.021 (1.000-1.030); Urobilinogen Urine Negative (Negative)
[2021-07-09 12:35] LABS: Bilirubin Urine 1+ (Negative)
[2021-07-09 12:45] LABS: Amorphous Sediment Urine Present (None Prsent); Uric Acid Crystals Urine Present (None Prsent)
--- NOTE | 2021-07-09 14:00 | Pharmacy Report ---
Pharmacy Glycemic Short Note 2 - Date of Service July 09, 2021 - Glycemic Short BSG Results (Last 24 hours): 07/08/21 07/08/21 07/09/21 18:47 22:09 00:07 Glucose 185 H POC Glucose (other) 201 H 187 H 07/09/21 07/09/21 07/09/21 04:45 06:10 11:51 Glucose 168 H POC Glucose (other) 182 H 181 H OUTPATIENT ANTIDIABETIC REGIMEN: * None ASSESSMENT: 07/09: * Pt received total 33 units of insulin yesterday; 30 units basal and 3 units bolus * Fasting BSG today was 182 mg/dl. Re-ordered AM dose around noon today, then at HS using dose scale based on BSG. * Post-prandial BSGs have only been slightly elevated and steady at 182-181 mg/dl. Novolog parameters were tightened slightly yesterday night. Continued the same today. 07/08: * 65 y/o M admitted for cirrhosis and alcohol withdrawal. Patient does not have a known history of diabetes and was not any anti-diabetic meds prior to admission. * Pharmacy consulted today afternoon for glycemic control while admitted. * Fasting BSG today was 106 mg/dl. Noon BSG check today was elevated to 204 mg/dl. Basal insulin x 1 started this afternoon. * Novolog bolus insulin was also started to cover the noon BSG based on wt and stress of 2 and wide BSG goal range of 140-180 mg/dl * Currently, both Levofed and Acetylcysteine drips are infusing. Both drips are prepared in Dextrose which is most likely contributing to the high BSG. PLAN FOR INPATIENT GLYCEMIC CONTROL: * Basal insulin * Lantus 15 units SQ QAM * Lantus 0-15 units scale at HS based on BSG * Bolus insulin: * NovoLog per scale ACHS or Q6hrs while NPO * Goal Range: Low 120 mg/dL - High 160 mg/dL * Correction Factor: 20 mg/dL/unit * Nutritional / Prandial insulin per carb ratio of 1 unit per 7 grams CHO consumed PLAN FOR DISCHARGE: * TBD
--- NOTE | 2021-07-09 15:10 | Critical Care Progress Note ---
Date of Service July 09, 2021 Assessment & Plan (1) Bilateral pleural effusion: (2) Decompensated liver disease: (3) Acute respiratory failure with hypoxia: (4) Acute liver failure: Plan: CT chest 07/08/2021 personally reviewed: Large right-sided pleural effusion with complete atelectasis of the right lung, small to moderate amount left-sided pleural effusion Large volume ascites with hepatomegaly And significant mediastinal adenopathy --VDRF Secondary to metabolic encephalopathy plus bilateral pleural effusion Likely secondary from elevated ammonia from underlying liver cirrhosis Continue with lactulose Continue with ventilatory support Keep RASS -1 Daily sedation holidays and SBT's --Decompensated liver cirrhosis with coagulopathy and thrombocytopenia S/p paracentesis 07/07/2021 2 L removed Total WBC count 89, greater than 1.1 unlikely to be SBP Monitor LFTs --Shock Combination of sepsis plus hypoalbuminemia Continue vasopressor support to keep MAP greater than 65 --Metabolic encephalopathy Secondary to elevated ammonia from decompensated liver cirrhosis Continue with lactulose [id number] --RENATA on CKD Likely hepatorenal syndrome Follow-up urine lites Continue with vasopressor support along with 25% albumin Stick in and out Avoid nephrotoxic medications --UTI Continue with antibiotics Follow-up urine culture --Bilateral pleural effusions Multifactorial Decompensated liver failure with cirrhosis playing a significant role S/p bilateral thoracentesis 07/08/2021 Left-sided thoracentesis 800 ml removed, lymphocytic. Seems to be transudative but I do not have LDH from the fluid Right-sided thoracentesis 1000 mL removed Given the large ascites, removing the fluid from the chest will ultimately result in reaccumulation unless ascites has been drained --Very poor prognosis --Prophylaxis VTE: IPC GI:Pepcid Lines: Left IJ, Stewart Diet: N.p.o. Plan: In/out: +3 L, urine output 1080 T-max 38.1 ABG 7.59/33/73 Given the alcoholic cirrhosis I DC the midazolam and start the patient on propofol Vitamin K 5 mg given for coagulopathy Hypokalemia and hypophosphatemia being replaced Went down on the respiratory rate as well as tidal volume for metabolic alkalosis. Plan to do paracentesis again today as the belly seems to be distended Very poor prognosis. I do not think we should escalate the care I did discuss this with hospitalist. Patient should be no CPR at least. Unfortunately there is no family member to help with decision making. I have personally spent 41 minutes of critical care time in the direct management of this patient. This is a life/limb threatening event. This includes time spent evaluating patient, direct bedside care, chart review, placing orders, interpretation of diagnostic studies, discussion with consultants, patient, and family members, as well as other required patient management activities. This time is exclusive of all separately billable procedures, and teaching time and separate from and in addition to any other critical care service time. Please note the above document was generated using voice recognition software. It may contain grammatical, syntax or spelling errors. Admission and Anticipated Discharge Date Admission Date: July 07, 2021 Subjective Patient seen and examined at bedside. Intubated and sedated. Was on midazolam. Midazolam DC'd On propofol currently On Levophed 0.14, vasopressin 0.04 Has started to make urine Did spike fever T-max 38.1 Review of Systems Review of Systems: Unobtainable due to mental health condition Physical Exam Physical Exam: Constitutional: Intubated HEENT: PERRLA, icteric sclera, positive ETT Respiratory system: Decreased air entry bilaterally, more decreased on the right side, no wheeze, crackles bilateral lower lobes CVS: S1-S2 positive, no murmurs or gallops Abdomen: Soft, distended, decreased bowel sounds, positive hepatomegaly Extremities: +2 pulses bilaterally radialis/ dorsalis pedis, no cyanosis, +2 pitting edema bilateral lower extremity, cold extremities Neuro: RASS -2, positive gag, positive corneal, positive pupillary Psych: Unable to assess G/U: Positive Stewart Skin: no rashes, warm and dry Lymphatic: no cervical or axillary lymphadenopathy Results & Data Results & Data ([facility]) Vital Signs (Past 12 Hours) Vital Signs Temp Pulse Pulse Resp BP BP Pulse Ox 07/09/21 13:05 37.1 C 79 14 122/72 97 07/09/21 12:04 36.5 C 81 116/78 98 07/09/21 11:44 82 14 96 07/09/21 11:05 37.8 C H 84 108/64 97 07/09/21 10:54 123/75 07/09/21 10:16 120/72 07/09/21 10:05 37.8 C H 85 120/72 97 07/09/21 09:27 128/78 07/09/21 09:05 37.9 C H 85 125/75 97 07/09/21 08:24 84 07/09/21 08:07 134/79 07/09/21 08:04 38.0 C H 86 134/79 96 07/09/21 07:59 14 07/09/21 07:20 87 16 99 07/09/21 07:05 38.1 C H 86 134/76 99 07/09/21 06:20 38.1 C H 87 129/70 99 07/09/21 06:05 38.2 C H 86 127/78 100 07/09/21 05:50 38.2 C H 86 126/74 100 07/09/21 05:35 38.2 C H 83 118/68 99 07/09/21 05:19 38.2 C H 84 124/78 98 07/09/21 05:04 38.2 C H 83 122/71 99 07/09/21 04:49 38.2 C H 81 113/66 100 07/09/21 04:34 38.3 C H 82 122/68 98 07/09/21 04:19 38.3 C H 81 127/72 99 07/09/21 04:16 16 07/09/21 04:05 38.3 C H 84 123/75 97 07/09/21 03:50 38.3 C H 84 120/80 99 07/09/21 03:35 38.3 C H 85 124/71 99 07/09/21 03:20 38.3 C H 84 123/68 99 07/09/21 03:10 85 16 98 07/09/21 03:05 38.3 C H 85 119/70 99 07/09/21 04:45 07/09/21 04:45 Coding Level of Care Code Critical Care 1st 30-74 mins Diagnoses Bilateral pleural effusion J90 Decompensated liver disease K74.69 Acute respiratory failure with hypoxia J96.01 Acute liver failure K72.00 Time Spent (min) 41
--- NOTE | 2021-07-09 15:11 | Procedure Note ---
Procedure Note Date of Service July 09, 2021 Note Procedure: Diagnostic therapeutic ultrasound-guided catheter paracentesis Jewelry Finisher: Dr. Jerzy Watson Indication: Large volume ascites Consent: Emergent consent was applied Anesthesia: 1% lidocaine without epinephrine local. Procedure: Consent was verified and timeout performed. Appropriate imaging studies were reviewed prior to the procedure. Patient was placed in a supine position and limited abdominal ultrasound was performed. See separate imaging. Appropriate site for paracentesis was selected. The skin was prepped and draped in normal sterile fashion. Lidocaine was used for local analgesia. Fluid was aspirated via the finder needle. A small skin josephine was made with the scalpel and the catheter over the needle apparatus was advanced via Z technique. Using the syringe one-way valve system, a total of 4400 mL's of dark yellow serous fluid was removed. The catheter was removed and observed to be intact. A sterile dressing was applied. Fluid was sent for labs, culture and cytology. The patient tolerated the procedure without obvious complication Blood loss: Less than 2 cc Coding CPT Codes Abdomen - Abdominal: 27416 Abdominal Paracentesis (diagnostic or therapeutic); W/O imaging ([id number]) Pulmonary/Thoracic - Pulmonary and Thoracic: 40419 US, Chest, real time with imaging documentation ([id number]) [facility] Procedure Codes (Charges) Abdomen Abdominal: 08320 Abdominal Paracentesis (diagnostic or therapeutic); W/O imaging Pulmonary/Thoracic Procedure 1: Pulmonary and Thoracic: 14571 US, Chest, real time with imaging documentation
[2021-07-09] MEDS: PIPERACILLIN/TAZOBACTAM 4.5 GM in DEXTROSE 5% 100 ML IV SCH ×2 (15:14→22:14)
--- NOTE | 2021-07-09 15:47 | Hospitalist Progress Note ---
Date of Service July 09, 2021 Assessment & Plan (1) Hypercapnic respiratory failure: (2) Encephalopathy: (3) UTI (urinary tract infection): (4) Acute hypotension: (5) Decompensated liver disease: Plan: Pt is currently admitted to the ICU: - intubated due to hypercapnic respiratory failure - s/p paracentesis x2 (2L and 4.4 L removed) and b/l thoracentesis - ascitic fluid analysis showed no sign of SBP - currently on Levophed and Vasopressin for hypotension - receiving albumin - started on lactulose for elevated ammonia --- ammonia trending down - pt was started on zosyn for fever and UA sent (+ for nitrite, leuk) - received Vit K for elevated INR - Palliative consult pending Spoke to pt's friend (Jonathan Herrera - [phone]) who knows the pt for 10 years -- per him pt has a brother (who lives in [place] ) and Sister (who lives in [place], [place]) -- he does not have their contact information but trying to find their infor (6) Bilateral pleural effusion: Plan: CXR with moderate to large right pleural effusion. Moderate left pleural effusion. 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 At bedside today: - pt was intubated and sedated Review of Systems Review of Systems: Unobtainable due to cognitive status Physical Exam Physical Exam: General:intubated and sedated HEENT: L IJ in place, possible scleral icterus, PERRLA Heart:. Normal S1, S2, no murmur Abdominal:.distended, soft, Dull to percuss LE: b/l LE trace pitting edema Psych: sedated Results & Data Results & Data ([facility]) Vital Signs (Past 12 Hours) Vital Signs Temp Pulse Pulse Resp BP BP Pulse Ox 07/09/21 15:11 79 07/09/21 14:50 80 14 99 07/09/21 13:05 37.1 C 79 14 122/72 97 07/09/21 12:04 36.5 C 81 116/78 98 07/09/21 11:44 82 14 96 07/09/21 11:05 37.8 C H 84 108/64 97 07/09/21 10:54 123/75 07/09/21 10:16 120/72 07/09/21 10:05 37.8 C H 85 120/72 97 07/09/21 09:27 128/78 07/09/21 09:05 37.9 C H 85 125/75 97 07/09/21 08:24 84 07/09/21 08:07 134/79 07/09/21 08:04 38.0 C H 86 134/79 96 07/09/21 07:59 14 07/09/21 07:20 87 16 99 07/09/21 07:05 38.1 C H 86 134/76 99 07/09/21 06:20 38.1 C H 87 129/70 99 07/09/21 06:05 38.2 C H 86 127/78 100 07/09/21 05:50 38.2 C H 86 126/74 100 07/09/21 05:35 38.2 C H 83 118/68 99 07/09/21 05:19 38.2 C H 84 124/78 98 07/09/21 05:04 38.2 C H 83 122/71 99 07/09/21 04:49 38.2 C H 81 113/66 100 07/09/21 04:34 38.3 C H 82 122/68 98 07/09/21 04:19 38.3 C H 81 127/72 99 07/09/21 04:16 16 07/09/21 04:05 38.3 C H 84 123/75 97 07/09/21 03:50 38.3 C H 84 120/80 99 Laboratory Results Short CBC 07/09/21 Range/Units 04:45 WBC 8.24 (4.8-10.8) K/uL Hgb 10.6 L (14.0-18.0) g/dL Hct 31.5 L (42-52) % Plt Count 93 L (130-400) K/uL BMP 07/08/21 07/09/21 22:09 04:45 Sodium 134 L 132 L Potassium 3.0 L D 3.3 L Chloride 91 L 94 L Carbon Dioxide 33 H 33 H BUN 31 H 28 H Creatinine 1.55 H 1.49 H Glucose 185 H 168 H Calcium 9.0 8.9 Liver Function 07/09/21 Range/Units 04:45 Total Bilirubin 8.1 H (0.2-1) mg/dl AST 87 H (15-37) U/L ALT 27 (12-78) U/L Alkaline Phosphatase 49 (45-117) U/L Albumin 2.9 L (3.4-5.0) gm/dl Urine 07/09/21 Range/Units 10:00 Urine Color Rains Urine Appearance Turbid A (Clear) Urine pH 5.0 (4.5-7.5) Ur Specific Chestnut 1.021 (1.000-1.030) Urine Protein Trace H (Negative) Urine Glucose (UA) Negative (Negative) (1) CHF (congestive heart failure) Heart failure chronicity: chronic Heart failure type: unspecified Qualified Code(s): I50.9 - Heart failure, unspecified
[2021-07-09] MEDS ORDERED: GABAPENTIN 400 MG CAP PO SCH ×2 (17:45→18:00)
[2021-07-09] MEDS ORDERED: 0.2 MICRON FILTER SET 1 EA IV ONE (21:42)
[2021-07-09] MEDS ORDERED: AMIODARONE / D5W 150 MG/100 ML BAG IV STA (21:42)
[2021-07-09] MEDS ORDERED: AMIODARONE / D5W 360 MG/200 ML BAG IV ONE (21:51)
[2021-07-09] MEDS ORDERED: dilTIAZem HCL 125 MG in DEXTROSE 5% 100 ML IV SCH (22:00)
[2021-07-10] MEDS ORDERED: INSULIN GLARGINE SOLOSTAR 100 UNITS/ML 3 ML PEN SC ONE
[2021-07-10] MEDS: propofoL 1,000 MG/100 ML VIAL IV SCH ×4 (02:51→13:43)
[2021-07-10 03:44] LABS: iSTAT Allen Test Pass; iSTAT Arterial Blood Gas HCO3 35 meg/L (19-24); iSTAT Arterial Blood Gas pCO2 41 mmHg (35-46); iSTAT Arterial Blood Gas pH 7.54 (7.35-7.45); iSTAT Arterial Blood Gas pO2 74 mmHg (80-95); iSTAT Carbon Dioxide 36 mmol/L (24-31); iSTAT Site L Radial
[2021-07-10] MEDS ORDERED: AMIODARONE / D5W 360 MG/200 ML BAG IV SCH (03:50)
[2021-07-10 05:04] LABS: INR 2.4 (0.9-1.1); Prothrombin Time 22.8 Seconds (9.0-12.0)
[2021-07-10 05:31] LABS: Basophils # (auto) 0.04 K/uL (0-0.2); Basophils % (auto) 0.6 %; Eosinophils # (auto) 0.13 K/uL (0-0.5); Hematocrit (blood only) 29.9 % (42-52); Immature Granulocytes # (auto) 0.02 K/uL (0.00-0.02); Immature Granulocytes % (auto) 0.3 %; Mean Corpuscular Hemoglobin 35.8 pg (25-34); Mean Corpuscular Hgb Conc 33.4 g/dL (32-36); Mean Corpuscular Volume 107.2 fL (80-100); Mean Platelet Volume 10.2 fL (7.4-10.4); Monocytes # (auto) 0.61 K/uL (0.11-0.59); Monocytes % (auto) 9.5 %; Neutrophils # (auto) 4.72 K/uL (1.4-6.5); Neutrophils % (auto) 73.6 %; Platelet Count 31 K/uL (130-400); Platelet Estimate Decreased (Normal); RDW Coefficient of Variation 18.5 % (11.5-14.5); RDW Standard Deviation 72.4 fL (36.4-46.3); Red Blood Count 2.79 M/uL (4.7-6.1); White Blood Count 6.42 K/uL (4.8-10.8)
[2021-07-10] MEDS: VASOPRESSIN 20 UNITS in 0.9 % SODIUM CHLORIDE 100 ML IV SCH (05:37)
[2021-07-10] MEDS: ALBUMIN 25% 12.5 GM/50 ML VIAL IV SCH ×2 (05:38→12:53)
[2021-07-10] MEDS: GABAPENTIN 250 MG/5 ML 470 ML BTL PO SCH (05:39)
[2021-07-10] MEDS: INSULIN ASPART 100 UNITS/ML 3 ML PEN SC SCH ×2 (05:39→12:53)
[2021-07-10 05:48] LABS: BUN Creatinine Ratio 19.2 (10-20); Calcium 8.6 mg/dl (8.5-10.1); Creatinine Clr Calc Pharmacy 87.2 ml/min; Est GFR (African American) 95.6 ml/min; Est GFR (Non-African American) 82.5 ml/min; Magnesium 1.7 mg/dl (1.8-2.4); Phosphorus 1.4 mg/dl (2.5-4.9); Potassium 2.5 mmol/L (3.5-5.1)
[2021-07-10] MEDS ORDERED: POTASSIUM CHLORIDE 20 MEQ/15 ML UDC PO STA (05:49)
[2021-07-10] MEDS ORDERED: POTASSIUM PHOS 3 MMOL/1 ML INFUSION IV STA ×2 (05:49→07:22)
[2021-07-10] MEDS ORDERED: POTASSIUM PHOSPHATE 40 MMOL in SODIUM CHLORIDE 0.9% 1000ML 1,000 ML IV ONE (06:15)
[2021-07-10] MEDS: MAGNESIUM SULFATE / D5W 1 GM/100 ML BAG IV SCH ×2 (06:18→07:30)
[2021-07-10] MEDS: PIPERACILLIN/TAZOBACTAM 4.5 GM in DEXTROSE 5% 100 ML IV SCH (07:32)
--- NOTE | 2021-07-10 07:36 | Critical Care Progress Note ---
Date of Service July 10, 2021 Assessment & Plan (1) Bilateral pleural effusion: (2) Decompensated liver disease: (3) Acute respiratory failure with hypoxia: (4) Acute liver failure: Plan: CT chest 07/08/2021 personally reviewed: Large right-sided pleural effusion with complete atelectasis of the right lung, small to moderate amount left-sided pleural effusion Large volume ascites with hepatomegaly And significant mediastinal adenopathy --VDRF Secondary to metabolic encephalopathy plus bilateral pleural effusion Likely secondary from elevated ammonia from underlying liver cirrhosis Continue with lactulose Continue with ventilatory support Keep RASS -1 Daily sedation holidays and SBT's --Decompensated liver cirrhosis with coagulopathy and thrombocytopenia S/p paracentesis 07/07/2021 4L removed --> another 4.4 L removed on 07/09/2021 --> follow-up cytology Total WBC count 89, greater than 1.1 unlikely to be SBP Monitor LFTs --New onset A. fib Patient was transiently on diltiazem He converted to sinus rhythm Patient platelets are only 31, would not give heparin given the high risk of bleeding --Shock Combination of sepsis plus hypoalbuminemia Continue vasopressor support to keep MAP greater than 65 --Metabolic encephalopathy Secondary to elevated ammonia from decompensated liver cirrhosis Continue with lactulose [id number] --RENATA on CKD Likely hepatorenal syndrome Follow-up urine lites Continue with vasopressor support along with 25% albumin Stick in and out Avoid nephrotoxic medications --UTI Continue with antibiotics Follow-up urine culture --Bilateral pleural effusions Multifactorial Decompensated liver failure with cirrhosis playing a significant role S/p bilateral thoracentesis 07/08/2021 Left-sided thoracentesis 800 ml removed, lymphocytic. Seems to be transudative but I do not have LDH from the fluid Right-sided thoracentesis 1000 mL removed Given the large ascites, removing the fluid from the chest will ultimately result in reaccumulation unless ascites has been drained --Metabolic alkalosis Could be from patient getting lactulose and diarrhea Would consider giving acetazolamide --Very poor prognosis --Prophylaxis VTE: IPC GI:Pepcid Lines: Left IJ, Stewart Diet: N.p.o. Plan: In/out: +1.7 L, urine output 1731 Hypokalemia and hypophosphatemia along with hypomagnesemia being replaced Give another vitamin K 5 mg for coagulopathy Patient does have pH of 7.54 with PCO2 of 41 Patient's bicarb is 34 could be secondary to diarrhea from lactulose. I will start the patient on acetazolamide which will help with the urine output as well. Very poor prognosis. I do not think we should escalate the care Patient should be no CPR at least. Unfortunately there is no family member to help with decision making. I have personally spent 38 minutes of critical care time in the direct management of this patient. This is a life/limb threatening event. This includes time spent evaluating patient, direct bedside care, chart review, placing orders, interpretation of diagnostic studies, discussion with consultants, patient, and family members, as well as other required patient management activities. This time is exclusive of all separately billable procedures, and teaching time and separate from and in addition to any other critical care service time. Please note the above document was generated using voice recognition software. It may contain grammatical, syntax or spelling errors. Admission and Anticipated Discharge Date Admission Date: July 07, 2021 Subjective Patient seen and examined at bedside. No acute distress Patient was on propofol 20, vasopressin 0.04, Levophed 0.12 with the time of examination His map was in the 70s. Patient is RASS -2 He is breathing over the vent. Review of Systems Review of Systems: Unobtainable due to mental health condition and Unobtainable due to endotracheal tube Physical Exam Physical Exam: Constitutional: Intubated HEENT: PERRLA, icteric sclera, positive ETT Respiratory system: Decreased air entry bilaterally, more decreased on the right side, no wheeze, crackles bilateral lower lobes CVS: S1-S2 positive, no murmurs or gallops Abdomen: Soft, distended, decreased bowel sounds, positive hepatomegaly Extremities: +2 pulses bilaterally radialis/ dorsalis pedis, no cyanosis, +2 pitting edema bilateral lower extremity, cold extremities Neuro: RASS -2, positive gag, positive corneal, positive pupillary Psych: Unable to assess G/U: Positive Stewart Skin: no rashes, warm and dry Lymphatic: no cervical or axillary lymphadenopathy Results & Data Results & Data ([facility] [place]) Vital Signs (Past 12 Hours) Vital Signs Temp Pulse Resp BP Pulse Ox 07/10/21 06:27 35.6 C L 82 96/59 L 98 07/10/21 06:12 35.6 C L 82 92/66 L 98 07/10/21 05:57 35.7 C L 77 98/63 L 98 07/10/21 05:42 35.7 C L 79 97/64 L 98 07/10/21 05:28 35.7 C L 73 100/67 98 07/10/21 05:12 35.8 C L 78 97/63 L 98 07/10/21 04:58 35.8 C L 77 98/64 L 98 07/10/21 04:43 35.8 C L 78 105/67 98 07/10/21 04:27 35.8 C L 74 99/73 L 98 07/10/21 04:12 35.9 C L 85 105/64 98 07/10/21 03:57 35.9 C L 83 101/77 98 07/10/21 03:42 35.9 C L 81 98/67 L 98 07/10/21 03:27 36.0 C L 72 105/67 98 07/10/21 03:12 36.0 C L 89 102/71 98 07/10/21 02:57 36.0 C L 80 100/68 99 07/10/21 02:56 82 17 98 07/10/21 02:42 36.1 C L 83 97/74 L 98 07/10/21 02:41 104 H 07/10/21 02:27 36.1 C L 71 95/62 L 98 07/10/21 02:12 36.2 C L 78 94/68 L 98 07/10/21 01:57 36.2 C L 84 97/70 L 98 07/10/21 01:42 36.3 C L 80 96/67 L 98 07/10/21 01:27 36.4 C L 96 H 109/59 L 97 07/10/21 01:12 36.5 C 90 92/66 L 100 07/10/21 00:57 36.5 C 111 H 105/77 96 07/10/21 00:42 36.5 C 93 H 106/66 98 07/10/21 00:27 36.5 C 103 H 103/80 98 07/10/21 00:12 36.5 C 108 H 105/66 98 07/09/21 23:57 36.6 C 95 H 108/71 98 07/09/21 23:42 36.6 C 116 H 95/60 L 98 07/09/21 23:27 36.6 C 113 H 99/68 L 98 07/09/21 23:12 36.6 C 112 H 103/68 98 07/09/21 22:57 36.6 C 117 H 111/75 98 07/09/21 22:50 110 H 14 94 07/09/21 22:42 36.6 C 117 H 114/78 98 07/09/21 22:17 36.6 C 110 H 121/81 98 07/09/21 22:02 36.6 C 140 H 117/89 98 07/09/21 21:47 36.6 C 126 H 116/84 98 07/09/21 21:32 36.5 C 113 H 115/81 98 07/09/21 21:17 36.6 C 112 H 116/88 98 07/09/21 21:02 36.6 C 106 H 132/102 H 98 07/09/21 20:47 36.6 C 83 125/76 98 07/09/21 20:32 36.6 C 73 130/77 99 07/09/21 20:31 74 14 93 07/09/21 20:17 36.6 C 70 127/76 98 07/09/21 20:02 36.6 C 73 126/74 98 07/09/21 19:47 36.7 C 73 126/75 98 07/10/21 04:13 07/10/21 04:13 Coding Level of Care Code Critical Care 1st 30-74 mins Diagnoses Bilateral pleural effusion J90 Decompensated liver disease K74.69 Acute respiratory failure with hypoxia J96.01 Acute liver failure K72.00 Time Spent (min) 38
[2021-07-10 08:10] LABS: Estimated Average Glucose 85 mg/dl; Hemoglobin A1C 4.6 % (4.5-5.6)
[2021-07-10] MEDS ORDERED: INSULIN GLARGINE SOLOSTAR 100 UNITS/ML 3 ML PEN SC SCH (09:00)
[2021-07-10] MEDS ORDERED: acetaZOLAMIDE 250 MG in DEXTROSE 5% 100 ML IV SCH (09:00)
--- NOTE | 2021-07-10 09:12 | XRay Report ---
XR chest 1V portable CLINICAL HISTORY: Resp failure COMPARISON STUDY: July 09 at 05:51 hours FINDINGS: No pneumothorax. There is mild interval worsening of the recently seen bilateral pleural effusion, large on the right and moderate on the left. Opacities at bilateral bases are again seen representing atelectasis or infiltrates. Redemonstration of diffuse prominence of pulmonary interstitium and peribronchial cuffing. Cardiomediastinal silhouette is unchanged since recent prior study and partially obscured by bilatera l pleural effusion. Pulmonary vasculature is obscured.. Osseous structures: Minimal degenerative changes of the spine. Tip of endotracheal tube is seen projecting 4.3 cm above eleazar. Stable position of gastric tube. Multiple overlying tubes and wires are seen. IMPRESSION: 1. Mild interval worsening of bilateral pleural effusion. 2. Atelectasis/infiltrates at bilateral bases. 3. Tip of endotracheal tube is 4.3 cm above eleazar. The rest of support apparatus as above. ACT 112: Negative or not required by law. The above report was generated using voice recognition software. It may contain grammatical, syntax o r spelling errors. Electronically signed by: Pao Diane DO 07/10/2021 9:11 AM
[2021-07-10] MEDS ORDERED: PHYTONADIONE 5 MG in SODIUM CHLORIDE 0.9% 50 ML IV ONE (09:15)
[2021-07-10] MEDS: LACTULOSE SYRUP 30 GM/45 ML UDP PO SCH (09:30)
[2021-07-10] MEDS: FAMOTIDINE 20 MG in SYRINGE 3 ML IV SCH (09:31)
[2021-07-10] MEDS: FOLIC ACID 1 MG in SYRINGE 9.8 ML IV SCH (09:32)
[2021-07-10] MEDS: NOREPINEPHRINE/D5W 8 MG/508 ML BAG IV SCH ×2 (10:36→12:53)
--- NOTE | 2021-07-10 11:27 | Palliative Care Consultation ---
Date of Consultation July 10, 2021 Assessment & Plan (1) Palliative care encounter: This is an unfortunate 65 year old male who presented to the [facility] with worsening shortness of breath that has occurred over the past week. Additional PMH includes: CHF, hypertension, and alcohol abuse. Per review, he drinks anywhere from 10-12 beers daily and is poorly compliant with any medical care. On admission, he was too weak to answer his front door for his friend; prompting his friend to call 911. He reported that his appetite has been poor as well. On admission, a paracentesis was performed as he had ascites. Additionally, a CT of the chest was performed with a left sided pleural ef fusion. a right-sided thoracentesis was performed with removal of 800mL and a left-sided thoracentesis was performed with removal of 1L. The patient ultimately did go into metabolic acidosis and a shock state related to his progressive uncompensated cirrhosis. Albumin, Lactulose and antibiotics were initiated. Palliative Medicine was consulted to discuss overall goals of care. I visited the patient in room 104. He was sedated with Propofol and intubated on two pressors. He did move his limbs when I said his name; however, no meaningful interaction to assist with decision making. I was able to talk with Glenroy, the patients brother at [phone]. We talked at length. He said that he has not had interaction with his brother Darwin in 20 years and there was never any big 'falling out', but in his eyes, Darwin never developed coping mechanisms for his addiction and pushed his family and multiple friends away. After explaining his poor and guarded prognosis, he said that Darwin would not want heroic measures taken to keep him alive. I did talk then with Mary at [phone], the patients sister as well who was very emotional about the situation, but also agreed that Darwin would not want heroic measures taken with his care, if futile. I then was able to hold a conference call with the patients sister Mary and brother Glenroy, at the same time, as I felt it would be helpful for Mary due to the heightened emotion. Glenroy was helpful to discuss the support that he will provide his sister. I did offer bedside visitation for both family members and they both declined at this time. As the patient does not have any documented or established decision maker, both next of kin (the patients brother and sister) by default have decision making opportunity. Both are in agreement to transition to comfort measures with compassionate extubation as the patients condition is futile with none to little meaningful recovery. I explained extubation and transition to comfort measures. All questions answered and I stated that we would ensure his comfort as his body declines. It is likely that the patients life expectancy is hours to a few days without the inotropic support and respiratory support. Glenroy indicated that they would like to proceed with [facility] services in [place]. All of the above discussed and support received for full [employer] transition with Dr. Watson, Dr. Sheridan, and Chastity BRODERICK. All medications and treatment not comfort focused was discontinued. Morphine infusion ordered, Ativan, and Robinul as necessary. Please contact Palliative Medicine with any additional questions. (2) Sepsis: (3) Encephalopathy: (4) Acute liver failure: History of Present Illness Reason for Consultation: Goals of care Requesting Physician: Noble DAVIS Attending Physician: Sourav Gonzalez MD History of Present Illness This is an unfortunate 65 year old male who presented to the [facility] with worsening shortness of breath that has occurred over the past week. Additional PMH includes: CHF, hypertension, and alcohol abuse. Per review, he drinks anywhere from 10-12 beers daily and is poorly compliant with any medical care. On admission, he was too weak to answer his front door for his friend; prompting his friend to call 911. He reported that his appetite has been poor as well. On admission, a paracentesis was performed as he had ascites. Additionally, a CT of the chest was performed with a left sided pleural effusion. a right-sided thoracentesis was performed with removal of 800mL and a left-sided thoracentesis was performed with removal of 1L. The patient ultimately did go into metabolic acidosis and a shock state related to his progressive uncompensated cirrhosis. Albumin, Lactulose and antibiotics were initiated. Palliative Medicine was consulted to discuss overall goals of care. Please see A/P for further details. Thanks for contacting Palliative Medicine to assist with this unfortunate situation. Allergies Allergy/AdvReac Type Severity Reaction Status Date / Time No Known Allergies Allergy Verified 07/07/21 14:59 Home Medications Medication Instructions Recorded Confirmed Type atenolol 50 mg tablet 50 mg PO DAILY 07/07/21 07/07/21 History carvedilol 3.125 mg tablet 3.125 mg PO BID 07/07/21 07/07/21 History epinephrine 0.125 mg/actuation 1 puff INHALATION Q4H PRN 07/07/21 07/07/21 History aerosol inhaler (Primatene Mist) furosemide 40 mg tablet (Lasix) 40 mg PO DAILY 07/07/21 07/07/21 History Patient History Medical History (Updated 07/10/21 @ 12:04 by RYAN Keita) Alcohol abuse CHF (congestive heart failure) Hypertension Palliative care encounter Surgical History No pertinent past surgical history Family History Other Heart disease Kidney disease Social History Smoking Status: Never smoker Hx Alcohol Use: Yes (states he quit "a week ago" last drink was "last saturday") Alcohol type: beer Hx Substance Use: No Preferred Language: Malay Communication Ability Comment: pt seems confused at times Beliefs That Will Affect Care: None Current Living Situation: Alone Feels Safe at Home: Yes Safety Concerns: Feels Safe At This Time Assistive Devices: Glasses and Oxygen - Continuous Review of Systems Review of Systems: [place] System Assessment Scale: Pain by observation: 1/3 SOB by observation: 1/3 Anxiety by observation 0/3 Palliative Performance Scale: 20% Physical Exam Constitutional: + ill appearing and + combative; + uncomfortable ENMT: Mouth: + dry oral mucous membranes Respiratory: normal respiratory effort Auscultation: + rhonchi Cardiovascular: Rate/Rhythm: regular rate and regular rhythm Extremities: normal capillary refill and + edema Gastrointestinal (Abdomen): Inspection/Auscultation: + abdomen distended Skin: + ecchymosis and + pallor Psychiatric: Orientation: + not alert Results & Data ([place]) Vital Signs (Past 12 Hours) Vital Signs Temp Pulse Resp BP Pulse Ox 07/10/21 11:12 35.9 C L 67 97/61 L 98 07/10/21 10:13 35.7 C L 67 102/61 99 07/10/21 09:12 35.6 C L 64 109/65 99 07/10/21 08:12 35.4 C L 61 108/65 99 07/10/21 07:31 59 L 12 99 07/10/21 07:12 35.5 C L 58 L 90/59 L 98 07/10/21 06:40 77 07/10/21 06:27 35.6 C L 82 96/59 L 98 07/10/21 06:12 35.6 C L 82 92/66 L 98 07/10/21 05:57 35.7 C L 77 98/63 L 98 07/10/21 05:42 35.7 C L 79 97/64 L 98 07/10/21 05:28 35.7 C L 73 100/67 98 07/10/21 05:12 35.8 C L 78 97/63 L 98 07/10/21 04:58 35.8 C L 77 98/64 L 98 07/10/21 04:43 35.8 C L 78 105/67 98 07/10/21 04:27 35.8 C L 74 99/73 L 98 07/10/21 04:12 35.9 C L 85 105/64 98 07/10/21 03:57 35.9 C L 83 101/77 98 07/10/21 03:42 35.9 C L 81 98/67 L 98 07/10/21 03:27 36.0 C L 72 105/67 98 07/10/21 03:12 36.0 C L 89 102/71 98 07/10/21 02:57 36.0 C L 80 100/68 99 07/10/21 02:56 82 17 98 07/10/21 02:42 36.1 C L 83 97/74 L 98 07/10/21 02:41 104 H 07/10/21 02:27 36.1 C L 71 95/62 L 98 07/10/21 02:12 36.2 C L 78 94/68 L 98 07/10/21 01:57 36.2 C L 84 97/70 L 98 07/10/21 01:42 36.3 C L 80 96/67 L 98 07/10/21 01:27 36.4 C L 96 H 109/59 L 97 07/10/21 01:12 36.5 C 90 92/66 L 100 07/10/21 00:57 36.5 C 111 H 105/77 96 07/10/21 00:42 36.5 C 93 H 106/66 98 07/10/21 00:27 36.5 C 103 H 103/80 98 07/10/21 00:12 36.5 C 108 H 105/66 98 07/09/21 23:57 36.6 C 95 H 108/71 98 07/09/21 23:42 36.6 C 116 H 95/60 L 98 07/09/21 23:27 36.6 C 113 H 99/68 L 98 PG Care Time/CCT Total # of Minutes Spent Total Time Spent with Patient: Total time spent is greater than 50% in coordination of care (as documented) at patient's floor/unit and/or counseling patient: 100 minutes with > 50% of that time spent assessing the patient, discussing goals of care with brother and sister, addressing symptom management needs and collaborating with IDT Coding Level of Care Code 66537 Initial Inpt Care Lvl 3 Diagnoses Palliative care encounter Z51.5 Sepsis A41.9 Encephalopathy G93.40 Acute liver failure K72.00 Time Spent (min) 100
--- NOTE | 2021-07-10 12:04 | Gastroenterology Progress Note ---
Date of Service July 10, 2021 Assessment & Plan Admission and Anticipated Discharge Date Admission Date: July 07, 2021 Supervising Physician Co-Signing Physician Notes Poor prognosis decompensated cirrhosis PE pt is intubated, sedated Agree with discussion about goals of care with family Subjective Pt currently sedated, on mechanical ventilator, unable to provide history. He is s/p paracentesis and thoracentesis over weekend. Family meeting to be held today, anticipate possible transitioning to comfort care given his poor pr ognosis ASSESSMENT/PLAN: Pt is a 65 y/o male admitted with decompensated cirrhosis (suspect ETOH cirrhosis) s/p thoracentesis for pleural effusion and large volume paracentesis for ascites w/o signs of SBP. MELD 24. He had UTI, ERNATA, respiratory failure on mechanical vent, encephalopathic. Poor prognosis overall. Family meeting to be held today to discuss goals of care, anticipate possibly trans itioning him to comfort care. No new GI plans as this time. Would continue antibx coverage, Albumin support, lactulose administration and repeating paracentesis on prn basis. Review of Systems Review of Systems: Unobtainable due to endotracheal tube and Unobtainable due to reduced consciousness Physical Exam Physical Exam: Pt sedated on mechanical ventilator; appears comfortable but non-responsive/following commands Respiratory: On mechanical ventilator. Diminished bilateral bases Cardiovascular: RRR, no murmur, no edema Gastrointestinal (Abdomen): Mild distension, no grimacing/restlessness on palpation, BS hypoactive Skin: no rashes, warm and dry Neurologic: Sedated Results & Data ([facility]) Vital Signs (Past 12 Hours) Vital Signs Temp Pulse Resp BP Pulse Ox 07/10/21 11:26 35.5 C L 07/10/21 11:12 35.9 C L 67 97/61 L 98 07/10/21 10:59 67 13 98 07/10/21 10:13 35.7 C L 67 102/61 99 07/10/21 09:12 35.6 C L 64 109/65 99 07/10/21 08:12 35.4 C L 61 108/65 99 07/10/21 07:31 59 L 12 99 07/10/21 07:12 35.5 C L 58 L 90/59 L 98 07/10/21 06:40 77 07/10/21 06:27 35.6 C L 82 96/59 L 98 07/10/21 06:12 35.6 C L 82 92/66 L 98 07/10/21 05:57 35.7 C L 77 98/63 L 98 07/10/21 05:42 35.7 C L 79 97/64 L 98 07/10/21 05:28 35.7 C L 73 100/67 98 07/10/21 05:12 35.8 C L 78 97/63 L 98 07/10/21 04:58 35.8 C L 77 98/64 L 98 07/10/21 04:43 35.8 C L 78 105/67 98 07/10/21 04:27 35.8 C L 74 99/73 L 98 07/10/21 04:12 35.9 C L 85 105/64 98 07/10/21 03:57 35.9 C L 83 101/77 98 07/10/21 03:42 35.9 C L 81 98/67 L 98 07/10/21 03:27 36.0 C L 72 105/67 98 07/10/21 03:12 36.0 C L 89 102/71 98 07/10/21 02:57 36.0 C L 80 100/68 99 07/10/21 02:56 82 17 98 07/10/21 02:42 36.1 C L 83 97/74 L 98 07/10/21 02:41 104 H 07/10/21 02:27 36.1 C L 71 95/62 L 98 07/10/21 02:12 36.2 C L 78 94/68 L 98 07/10/21 01:57 36.2 C L 84 97/70 L 98 07/10/21 01:42 36.3 C L 80 96/67 L 98 07/10/21 01:27 36.4 C L 96 H 109/59 L 97 07/10/21 01:12 36.5 C 90 92/66 L 100 07/10/21 00:57 36.5 C 111 H 105/77 96 07/10/21 00:42 36.5 C 93 H 106/66 98 07/10/21 00:27 36.5 C 103 H 103/80 98 07/10/21 00:12 36.5 C 108 H 105/66 98
[2021-07-10] MEDS ORDERED: MoRPHine SULFATE 2 MG/ML CARP IV STA (12:35)
[2021-07-10] MEDS ORDERED: STAT IV Infusion **Titration per Protocol STA (12:35)
--- NOTE | 2021-07-10 12:35 | Electrocardiogram Report ---
Test Reason : Blood Pressure : / mmHG Vent. Rate : 117 BPM Atrial Rate : 110 BPM P-R Int : 000 ms QRS Dur : 096 ms QT Int : 288 ms P-R-T Axes : 000 032 -59 degrees QTc Int : 401 ms Atrial fibrillation with rapid ventricular response Low voltage QRS Nonspecific ST and T wave abnormality Abnormal ECG When compared with ECG of 07-JUL-2021 17:45, Atrial fibrillation has replaced Sinus rhythm Vent. rate has increased BY 49 BPM Non-specific change in ST segment in Lateral leads Confirmed by Corwin Tavares ([id number]) on 07/10/2021 12:35:23 PM Referred By: REFERRED SELF Confirmed By:Corwin Tavares
[2021-07-10] MEDS ORDERED: GLYCOPYRROLATE 0.2 MG/ML VIAL IV PRN (12:36)
[2021-07-10] MEDS ORDERED: LORazepam 1 MG/2 ML VIAL IV PRN (12:37)
[2021-07-10] MEDS ORDERED: MoRPHine SULF/NSS 250 MG/250 ML BTL IV SCH (12:45)
--- NOTE | 2021-07-10 14:07 | Hospitalist Progress Note ---
Date of Service July 10, 2021 Assessment & Plan (1) Hypercapnic respiratory failure: (2) Encephalopathy: (3) UTI (urinary tract infection): (4) Acute hypotension: (5) Decompensated liver disease: Plan: Pt is a 65 y/o male admitted with decompensated cirrhosis (suspect ETOH cirrhosis) s/p thoracentesis for pleural effusion and large volume paracentesis for ascites w/o signs of SBP. MELD 24. He had UTI, RENATA, respiratory failure on mechanical vent, encephalopathic. Given his overall poor clinical prognosis in the setting of decompensated liver disease, acute respiratory failure with hypoxia, acute liver failure, shock, RENATA on CKD likely secondary to hepatorenal syndrome and new onset A. fib with RVR patient was transitioned to comfort care after having a meeting between his brother/sister and palliative care team. Patient will be transferred to [facility]. Continue with comfort care measures. (6) Bilateral pleural effusion: Plan: CXR with moderate to large right pleural effusion. Moderate left pleural effusion. 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 Review of Systems Review of Systems: Unobtainable due to endotracheal tube Physical Exam Physical Exam: Patient was resting comfortably. Results & Data Results & Data ([facility]) Vital Signs (Past 12 Hours) Vital Signs Temp Pulse Resp BP Pulse Ox 07/10/21 11:26 35.5 C L 07/10/21 11:12 35.9 C L 67 97/61 L 98 07/10/21 10:59 67 13 98 07/10/21 10:13 35.7 C L 67 102/61 99 07/10/21 09:12 35.6 C L 64 109/65 99 07/10/21 08:12 35.4 C L 61 108/65 99 07/10/21 07:31 59 L 12 99 07/10/21 07:12 35.5 C L 58 L 90/59 L 98 07/10/21 06:40 77 07/10/21 06:27 35.6 C L 82 96/59 L 98 07/10/21 06:12 35.6 C L 82 92/66 L 98 07/10/21 05:57 35.7 C L 77 98/63 L 98 07/10/21 05:42 35.7 C L 79 97/64 L 98 07/10/21 05:28 35.7 C L 73 100/67 98 07/10/21 05:12 35.8 C L 78 97/63 L 98 07/10/21 04:58 35.8 C L 77 98/64 L 98 07/10/21 04:43 35.8 C L 78 105/67 98 07/10/21 04:27 35.8 C L 74 99/73 L 98 07/10/21 04:12 35.9 C L 85 105/64 98 07/10/21 03:57 35.9 C L 83 101/77 98 07/10/21 03:42 35.9 C L 81 98/67 L 98 07/10/21 03:27 36.0 C L 72 105/67 98 07/10/21 03:12 36.0 C L 89 102/71 98 07/10/21 02:57 36.0 C L 80 100/68 99 07/10/21 02:56 82 17 98 07/10/21 02:42 36.1 C L 83 97/74 L 98 07/10/21 02:41 104 H 07/10/21 02:27 36.1 C L 71 95/62 L 98 07/10/21 02:12 36.2 C L 78 94/68 L 98 (1) CHF (congestive heart failure) Heart failure chronicity: chronic Heart failure type: unspecified Qualified Code(s): I50.9 - Heart failure, unspecified
[2021-07-10] MEDS ORDERED: cefTRIAXone SODIUM 2,000 MG in DEXTROSE 5% 50 ML IV SCH (15:00)
--- NOTE | 2021-07-11 02:03 | Death Pronouncement Note ---
Date of Service July 11, 2021 Pronouncement Note Admission Date Admission Date: July 07, 2021 Contributing Factors (1) Hypercapnic respiratory failure: (2) Encephalopathy: (3) UTI (urinary tract infection): (4) Acute hypotension: (5) Decompensated liver disease: (6) Bilateral pleural effusion: (7) Abdominal ascites: (8) Alcohol abuse: (9) CHF (congestive heart failure): Additional Data Attending physician: Sourav Gonzalez MD
[2021-07-11] MEDS ORDERED: GABAPENTIN 400 MG CAP PO SCH ×2 (05:45→06:00)
[2021-07-11] MEDS ORDERED: GABAPENTIN 250 MG/5 ML 470 ML BTL PO SCH (06:00)
--- NOTE | 2021-07-11 13:47 | Discharge Summary ---
Date of Service July 11, 2021 Admission HPI Per Admitting Provider This is a 65-year-old male with CHF, hypertension, and alcohol abuse who presents with worsening dyspnea over the past week. Patient admits that he rarely seeks medical care. Follows infrequently with Dr. Valladares in [place]. Has been feeling generally weak and short of breath over the past week and had a friend checking in on him since he lives alone. Today, patient was too weak to answer the door for his friend who then called EMS to take patient to ER for further evaluation. States he has had distended abdomen for the past 2 weeks. Tried to eat less and reduce alcohol consumption but belly remained distended. Patient with long-term alcohol abuse. Used to drink 10-11 light beers daily but reduced to 8 daily over the past 10 days. Unable to determine time of last drink. Does feel like he is going into withdrawal as he is more agitated and shaky. Known seizures in setting of alcohol withdrawal in the past. Remote tobacco use but quit 20 years ago. No formal cirrhosis diagnosis but states he notes his skin is yellow from time to time. Somewhat compliant taking atenolol, carvedilol and Lasix at home. Has not in the past few days due to feeling more weak. Denies any fever, chills or known sick contacts. No congestion or wheezing. No chest pain or palpitations. No nausea, vomiting or abdominal pain. Urinating without issue. No diarrhea or constipation. Admission Exam Per Admitting Provider General Appearance: vitals as above, appears chronically ill, jaundice, conversational dyspnea Head: normocephalic, atraumatic Eyes: normal inspection, PERRL, conjunctivae normal, anicteric sclerae ENT: external ear and nose normal, oropharynx normal Neck: normal visual inspection, trachea midline, no thyromegaly Respiratory: increased respiratory effort, diminished breath sounds at bases, no wheeze, rales or rhonchi. No accessory muscle use Cardiovascular: regular rate, rhythm, normal peripheral pulses, 1+ BLE edema. Vessels: + JVD Chest: normal inspection of chest Abdomen/GI: normal bowel sounds, distended but soft, nontender, no hepatosplenomegaly Extremities/Musculoskeletal: no cyanosis or clubbing, extremities motor strength 5/5 Neurologic: PERRL, EOMI, accommodation nl, no face palsy, no dysarthria, CN's II-XI intact bilaterally and moves all extremities Psychiatric: A+Ox3, poor insight Skin: no rashes, +jaundice, warm/dry Principal Diagnosis (1) Decompensated liver disease: (2) Abdominal ascites: (3) Hyperbilirubinemia: Acute liver failure Discharge Exam Patient was resting comfortably. Discharge Data Allergies Allergy/AdvReac Type Severity Reaction Status Date / Time No Known Allergies Allergy Verified 07/07/21 14:59 Consultations 07/07/21 17:02 ED Decision to Admit Stat 07/07/21 17:42 Consult Gastroenterology Routine Consult Pulmonology Routine 07/08/21 09:38 Consult Palliative Care Routine Ordered Studies 07/07/21 14:00 CT cervical spine wo con Stat CT head/brain wo con Stat US paracentesis abd w/image Stat 07/08/21 03:43 CT abd pelvis wo con Urgent CT chest diagnostic wo con Urgent 07/08/21 06:22 US point of care ultrasound Stat 07/09/21 14:26 US point of care ultrasound Urgent Hospital Course (1) Hypercapnic respiratory failure: (2) Encephalopathy: (3) UTI (urinary tract infection): (4) Acute hypotension: (5) Decompensated liver disease: Pt is a 65 y/o male admitted with decompensated cirrhosis (suspect ETOH cirrhosis) s/p thoracentesis for pleural effusion and large volume paracentesis for ascites w/o signs of SBP. MELD 24. He had UTI, RENATA, respiratory failure on mechanical vent, encephalopathic. Given his overall poor clinical prognosis in the setting of decompensated liver disease, acute respiratory failure with hypoxia, acute liver failure, shock, RENATA on CKD likely secondary to hepatorenal syndrome and new onset A. fib with RVR patient was transitioned to comfort care after having a meeting between his brother/sister and palliative care team. Patient will be transferred to [facility]. 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 (6) Bilateral pleural effusion: CXR with moderate to large right pleural effusion. Moderate left pleural effusion. 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
--- NOTE | 2021-07-22 09:47 | Coding Query ---
SEPSIS To promote full compliance with coding requirements relating to patient care, physician participation is requested in all cases of traveling construction superintendent uncertainty. Please assist us with the question(s) below: In responding to this query, please exercise your independent professional judgement. The fact that a question is asked does not imply that any particular answer is desired or expected. We appreciate your clarification on this issue. Throughout the medical record, you have clearly documented a localized infection and your patient has clinical evidence of a generalized sepsis or severe sepsis. The term urosepsis is a nonspecific entity and is coded as an UTI. If the patient has sepsis, severe sepsis, from an urinary source or some other source, please clarify in your response below. The medical record reflects the following clinical findings: Pt admitted with acute liver failure , alcohol dependence, acute respiratory failure with hypoxia and pleural effusinons. 07/10 progress note /Critical Care documented shock due to a combined Sepsis and hypoxia Seeking to clarify if patient was treated for Sepsis. Please check the appropriate phrase below. Thank you . Jacob Galo [facility] ____ ( )Bacteremia (Nonspecific laboratory finding of bacteria in the blood) Specify Organism () Present on Admission () Not present on admission () Unable to clinically determine ( ) Septicemia (Systemic disease associated with the presence of pathogenic microorganisms in the blood): Specify Organism () Present on Admission () Not present on admission () Unable to clinically determine ( ) Sepsis Specify Organism Specify Associated Condition/Diagnosis () Present on Admission () Not present on admission () Unable to clinically determine ( ) Severe Sepsis (Sepsis associated with acute organ dysfunction) Specify Organism Specify Associated Condition/Diagnosis () Present on Admission () Not present on admission () Unable to clinically determine ( ) Septic Shock (Severe sepsis with acute circulatory failure, unexplained by other causes) () Present on Admission () Not present on admission () Unable to clinically determine ( x) Other, patient has: Urosepsis MTDD
== END 2021-07-11 02:57 | disposition expired | DRG 441 ==
LOC: ED 13:47 → 2S 16:57 → SUATTDRO 16:57 → 2S 19:03 → 1E 07-08 03:56 → 3W 07-10 13:19